=== PATIENT | female | born 1955 | race Caucasian/White ===

== ENCOUNTER → 2018-06-27 | Outpatient (CLI) | payer BC ==
--- NOTE | 2018-06-29 11:01 | MM ---
Reason for exam: screening (asymptomatic). Last mammogram was performed 3 years and 2 months ago. History: Patient is postmenopausal and is nulliparous. Physical Findings: A clinical breast exam by your physician is recommended on an annual basis and results should be correlated with mammographic findings. MG 3D Screening Mammo W/Cad Bilateral CC and MLO view(s) were taken. Prior study comparison: May 06, 2015, bilateral MG screening mammo w CAD. February 14, 2013, bilateral digital screening mammo w/CAD. There are scattered fibroglandular densities. There is chronic nodularity bilaterally. No significant changes when compared with prior studies. ASSESSMENT: Benign, BI-RAD 2 RECOMMENDATION: Routine screening mammogram of both breasts in 1 year.
== END ==
LOC: RADMAMWWP 16:10
PROVIDERS: ATTEND Family Medicine
DX: Z12.31 Encounter for screening mammogram for malignant neoplasm of breast (principal)
CPT/HCPCS: 77063; 77067

== ENCOUNTER → 2019-10-17 | Outpatient (CLI) | payer MEDICARE, BC ==
--- NOTE | 2019-10-19 10:44 | MM ---
Reason for exam: screening (asymptomatic). Last mammogram was performed 1 year and 4 months ago. History: Patient is postmenopausal and is nulliparous. Physical Findings: A clinical breast exam by your physician is recommended on an annual basis and results should be correlated with mammographic findings. MG Screening Mammo w CAD Bilateral CC and MLO view(s) were taken. Prior study comparison: June 27, 2018, bilateral MG 3d screening mammo w/cad. May 06, 2015, bilateral MG screening mammo w CAD. There are scattered fibroglandular densities. No significant changes when compared with prior studies. ASSESSMENT: Benign, BI-RAD 2 RECOMMENDATION: Routine screening mammogram of both breasts in 1 year.
== END | disposition home or self-care (01) ==
LOC: RADMAMWWP 14:09
PROVIDERS: ATTEND Family Medicine
DX: Z12.31 Encounter for screening mammogram for malignant neoplasm of breast (principal)
CPT/HCPCS: 77067

== ENCOUNTER 2020-10-04 16:43 | Inpatient (IN) | payer MEDICARE, BC ==
--- NOTE | 2020-10-04 17:55 | ED ---
Fall HPI - General Chief Complaint: Fall Stated Complaint: Low Blood Sugar Time Seen by Provider: 10/04/20 16:45 Source: EMS Mode of arrival: EMS - History of Present Illness Initial Comments: Patient is a 65 year old female with past medical history of diabetes and hypertension who presents to the emergency department with reported fall. She called EMS when she sustained a fall on her way back from the kitchen making herself food. She was having difficulty getting up. EMS found her weak and confused. They checked her sugars and was found to be 40 was given 1 amp of D50 and 500 of a normal saline bolus and she was much more alert. Patient arrives without complaint. Denies passing out. States she did not hit her head. Reports that her sugar was low because she had just need herself something to eat. She denies any chest pain or shortness of breath. No back or flank pain. No pain in her extremities. She does have a notable bruise to her right forehead. States she sustained this when she fell a couple weeks back. Normally ambulates with a walker. Patient does care for herself. States she is able to make foods. Friends check in on her and take her grocery shopping. 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 - Related Data Home Medications Medication Instructions Recorded Confirmed Ascorbic Acid [Vitamin C] 500 mg PO DAILY 10/04/20 10/04/20 Cholecalciferol [Vitamin D3 (25 2,000 unit PO DAILY 10/04/20 10/04/20 Mcg = 1000 Iu)] Enalapril [Vasotec] 20 mg PO BID 10/04/20 10/04/20 Insulin NPH Hum/Reg Insulin Hm 15 unit SQ HS 10/04/20 10/04/20 [NovoLIN 70-30 100 UNIT/ML VIAL] Insulin NPH Hum/Reg Insulin Hm 50 unit SQ DAILY 10/04/20 10/04/20 [NovoLIN 70-30 100 UNIT/ML VIAL] Multivitamins, Thera [Multivitamin 1 tab PO DAILY 10/04/20 10/04/20 (formulary)] Potassium Chloride [Klor-Con 20] 20 meq PO DAILY 10/04/20 10/04/20 Simvastatin 40 mg PO HS 10/04/20 10/04/20 hydrALAZINE HCL 25 mg PO TID 12/25/20 12/25/20 Previous Rx's Medication Instructions Recorded Cephalexin [Keflex] 500 mg PO BID 1 Days #14 cap 10/04/20 Allergies Allergy/AdvReac Type Severity Reaction Status Date / Time No Known Allergies Allergy Verified 10/04/20 19:12 Review of Systems ROS Statement: Those systems with pertinent positive or pertinent negative responses have been documented in the HPI. ROS Other: All systems not noted in ROS Statement are negative. Past Medical History Past Medical History: Diabetes Mellitus, Hypertension History of Any Multi-Drug Resistant Organisms: None Reported Additional Past Surgical History / Comment(s): left ankle surgery, tib/fib, ventral hernia, Smoking Status: Never smoker Past Alcohol Use History: None Reported Past Drug Use History: None Reported General Exam Limitations: no limitations Course Vital Signs 10/04/20 10/04/20 10/04/20 16:44 19:02 20:18 Temperature 91.1 F L 92.3 F L Pulse Rate 73 75 74 Respiratory 16 18 18 Rate Blood Pressure 128/73 140/78 136/78 O2 Sat by Pulse 95 96 95 Oximetry 10/04/20 20:41 Temperature Pulse Rate 74 Respiratory 18 Rate Blood Pressure 143/83 O2 Sat by Pulse 96 Oximetry Medical Decision Making - Medical Decision Making Upon arrival the patient is placed in room 5. A thorough history and physical exam was performed. Patient denies any pain at this time however she does have outward signs of head injury for which she states is old. I do request to perform a CT of her head and cervical spine for which the patient agrees to. Laboratory studies are also checked. Patient does get up and ambulate to the bathroom. CT of the head and cervical spine demonstrates no acute CT of the brain. No acute fractures in the neck. Laboratory studies are reviewed. Patient's glucose is 111. Urinalysis is positive for nitrates, 69 white blood cell and occasional white blood cell clumps. Patient was given a dose of Rocephin. I did discuss the diagnosis. I did recommend hospitalization as the patient had hypoglycemia with hypothermia. I am concerned about her living conditions. Patient is alert, of sound mind and requesting to go home at this time. Patient states that she is able to care for herself. She is able to get up and ambulate to the bathroom with a walker. She is instructed that she needs to have a friend come and check on her. Follow up with her primary care doctor in 2-4 days. Return to the emergency room for any new or worsening symptoms. Patient was in agreement with the plan and discharged home in stable condition Attempted discharge of the patient however the patient does not have a way of getting home. Because this I did call discuss case with Dr. Velásquez. We'll keep the patient for hypothermia, UTI and hypoglycemia. Dr. Velásquez did agree to the admission - Lab Data Result diagrams: 10/04/20 17:44 10/04/20 17:44 Lab Results 10/04/20 10/04/20 10/04/20 Range/Units 17:44 17:44 17:44 WBC 5.7 (3.8-10.6) k/uL RBC 3.94 (3.80-5.40) m/uL Hgb 12.2 (11.4-16.0) gm/dL Hct 36.4 (34.0-46.0) % MCV 92.4 (80.0-100.0) fL MCH 31.1 (25.0-35.0) pg MCHC 33.6 (31.0-37.0) g/dL RDW 14.0 (11.5-15.5) % Plt Count 171 (150-450) k/uL MPV 7.6 Neutrophils % 81 % Lymphocytes % 10 % Monocytes % 5 % Eosinophils % 1 % Basophils % 1 % Neutrophils # 4.6 (1.3-7.7) k/uL Lymphocytes # 0.6 L (1.0-4.8) k/uL Monocytes # 0.3 (0-1.0) k/uL Eosinophils # 0.1 (0-0.7) k/uL Basophils # 0.1 (0-0.2) k/uL PT 9.6 (9.0-12.0) sec INR 0.9 (<1.2) APTT 25.1 (22.0-30.0) sec Sodium (137-145) mmol/L Potassium (3.5-5.1) mmol/L Chloride (98-107) mmol/L Carbon Dioxide (22-30) mmol/L Anion Gap mmol/L BUN (7-17) mg/dL Creatinine (0.52-1.04) mg/dL Est GFR (CKD-EPI)AfAm (>60 ml/min/1.73 sqM) Est GFR (CKD-EPI)NonAf (>60 ml/min/1.73 sqM) Glucose (74-99) mg/dL Plasma Lactic Acid Mandeep (0.7-2.0) mmol/L Calcium (8.4-10.2) mg/dL Total Bilirubin (0.2-1.3) mg/dL AST (14-36) U/L ALT (4-34) U/L Alkaline Phosphatase (38-126) U/L Creatine Kinase (30-135) U/L Troponin I (0.000-0.034) ng/mL Total Protein (6.3-8.2) g/dL Albumin (3.5-5.0) g/dL Urine Color Yellow Urine Appearance Clear (Clear) Urine pH 5.5 (5.0-8.0) Ur Specific [place] 1.009 (1.001-1.035) Urine Protein 1+ H (Negative) Urine Glucose (UA) Negative (Negative) Urine Ketones Negative (Negative) Urine Blood Negative (Negative) Urine Nitrite Positive H (Negative) Urine Bilirubin Negative (Negative) Urine Urobilinogen <2.0 (<2.0) mg/dL Ur Leukocyte Esterase Large H (Negative) Urine RBC 4 (0-5) /hpf Urine WBC 69 H (0-5) /hpf Urine WBC Clumps Occasional H (None) /hpf Ur Squamous Epith Cells <1 (0-4) /hpf Urine Bacteria Few H (None) /hpf Urine Mucus Rare H (None) /hpf 10/04/20 10/04/20 10/04/20 Range/Units 17:44 17:44 17:44 WBC (3.8-10.6) k/uL RBC (3.80-5.40) m/uL Hgb (11.4-16.0) gm/dL Hct (34.0-46.0) % MCV (80.0-100.0) fL MCH (25.0-35.0) pg MCHC (31.0-37.0) g/dL RDW (11.5-15.5) % Plt Count (150-450) k/uL MPV Neutrophils % % Lymphocytes % % Monocytes % % Eosinophils % % Basophils % % Neutrophils # (1.3-7.7) k/uL Lymphocytes # (1.0-4.8) k/uL Monocytes # (0-1.0) k/uL Eosinophils # (0-0.7) k/uL Basophils # (0-0.2) k/uL PT (9.0-12.0) sec INR (<1.2) APTT (22.0-30.0) sec Sodium 137 (137-145) mmol/L Potassium 5.0 (3.5-5.1) mmol/L Chloride 112 H (98-107) mmol/L Carbon Dioxide 22 (22-30) mmol/L Anion Gap 3 mmol/L BUN 33 H (7-17) mg/dL Creatinine 0.83 (0.52-1.04) mg/dL Est GFR (CKD-EPI)AfAm 85 (>60 ml/min/1.73 sqM) Est GFR (CKD-EPI)NonAf 74 (>60 ml/min/1.73 sqM) Glucose 111 H (74-99) mg/dL Plasma Lactic Acid Mandeep 1.1 (0.7-2.0) mmol/L Calcium 10.8 H (8.4-10.2) mg/dL Total Bilirubin 0.3 (0.2-1.3) mg/dL AST 72 H (14-36) U/L ALT 92 H (4-34) U/L Alkaline Phosphatase 106 (38-126) U/L Creatine Kinase 46 (30-135) U/L Troponin I <0.012 (0.000-0.034) ng/mL Total Protein 6.1 L (6.3-8.2) g/dL Albumin 3.4 L (3.5-5.0) g/dL Urine Color Urine Appearance (Clear) Urine pH (5.0-8.0) Ur Specific [place] (1.001-1.035) Urine Protein (Negative) Urine Glucose (UA) (Negative) Urine Ketones (Negative) Urine Blood (Negative) Urine Nitrite (Negative) Urine Bilirubin (Negative) Urine Urobilinogen (<2.0) mg/dL Ur Leukocyte Esterase (Negative) Urine RBC (0-5) /hpf Urine WBC (0-5) /hpf Urine WBC Clumps (None) /hpf Ur Squamous Epith Cells (0-4) /hpf Urine Bacteria (None) /hpf Urine Mucus (None) /hpf - EKG Data EKG Comments: EKG demonstrates first-degree AV block. Rate of 69. MD interval 242. QRS 86. QTC of 439. No acute ST segment elevations or depressions concerning for ischemic changes or infarction Disposition Clinical Impression: Fall, UTI (urinary tract infection), Hypoglycemia Disposition: ADMITTED IP TO THIS HOSP Condition: Stable Instructions (If sedation given, give patient instructions): Urinary Tract Infection in Women (ED), Fall Prevention for Older Adults (ED) Additional Instructions: Please follow-up with your primary care doctor in 2-4 days. Return to the emergency room for any new or worsening symptoms Prescriptions: Cephalexin [Keflex] 500 mg PO BID 1 Days #14 cap Is patient prescribed a controlled substance at d/c from ED?: No Referrals: Luis Velásquez MD [Primary Care Provider] - 1-2 days Time of Disposition: 19:46 Decision to Admit Reason: Admit from EC Decision Date: 10/04/20 Decision Time: 20:49
[2020-10-04 18:02] LABS: Basophils # (A) 0.1 k/uL (0-0.2); Basophils % (A) 1 %; Eosinophils # (A) 0.1 k/uL (0-0.7); Eosinophils % (A) 1 %; HCT 36.4 % (34.0-46.0); HGB 12.2 gm/dL (11.4-16.0); Lymphocytes # (A) 0.6 k/uL (1.0-4.8); Lymphocytes % (A) 10 %; MCH 31.1 pg (25.0-35.0); MCHC 33.6 g/dL (31.0-37.0); MCV 92.4 fL (80.0-100.0); Mean Platelet Volume 7.6; Monocytes # (A) 0.3 k/uL (0-1.0); Monocytes % (A) 5 %; Neutrophils # (A) 4.6 k/uL (1.3-7.7); Neutrophils % (A) 81 %; Platelet Count 171 k/uL (150-450); RBC 3.94 m/uL (3.80-5.40); WBC 5.7 k/uL (3.8-10.6)
[2020-10-04 18:13] LABS: INR 0.9 (<1.2); Partial Thromboplastin Time 25.1 sec (22.0-30.0); Prothrombin Time 9.6 sec (9.0-12.0)
[2020-10-04 18:17] LABS: Albumin 3.4 g/dL (3.5-5.0); Calcium 10.8 mg/dL (8.4-10.2); Total Bilirubin 0.3 mg/dL (0.2-1.3); Total Protein 6.1 g/dL (6.3-8.2)
--- NOTE | 2020-10-04 18:23 | CT ---
EXAM: CT Head Without Intravenous Contrast CLINICAL HISTORY: ITS.REASON CT Reason: fall TECHNIQUE: Axial computed tomography images of the head/brain without intravenous contrast. CTDI is 45.2 mGy and DLP is 1008 mGy-cm. This CT exam was performed using one or more of the following dose reduction techniques: automated exposure control, adjustment of the mA and/or kV according to patient size, and/or use of iterative reconstruction technique. COMPARISON: None FINDINGS: Brain: No acute infarct or hemorrhage. No extra-axial fluid collection. No mass effect or midline shift. Ventricles and sulci: Cerebral volume loss. No ventriculomegaly or intraventricular hemorrhage. Bones: Normal. No bony lesion or acute fracture. Subcutaneous tissues: Normal. Sinuses: Mild mucosal thickening in the maxillary sinuses and ethmoid air cells. Small polyp versus mucous retention cyst in the right sphenoid sinus Mastoid air cells: Normal. Orbits: Grossly unremarkable. IMPRESSION: No acute intracranial abnormality. EXAM: CT Cervical Spine Without Intravenous Contrast CLINICAL HISTORY: ITS.REASON CT Reason: fall TECHNIQUE: Axial computed tomography images of the cervical spine without intravenous contrast. CTDI is 15.8 mGy and DLP is 421.1 mGy-cm. This CT exam was performed using one or more of the following dose reduction techniques: automated exposure control, adjustment of the mA and/or kV according to patient size, and/or use of iterative reconstruction technique. COMPARISON: None FINDINGS: Bones: Straightening of the normal cervical lordosis. Osteopenia. No acute fracture or bony lesion. Disc spaces: No subluxation. Degenerative changes of the spine. Soft tissues: Normal. Other: Paranasal sinus disease. Heterogeneous thyroid could be further evaluated with nonemergent dedicated ultrasound if clinically indicated.. IMPRESSION: No acute traumatic abnormality.
[2020-10-04 19:28] LABS: Appearance,Urine Clear (Clear); Bacteria,Urine Few /hpf; Bilirubin,Urine Negative (Negative); Blood,Urine Negative (Negative); Color,Urine Yellow; Glucose,Urine (UA) Negative (Negative); Ketones,Urine Negative (Negative); Leukocyte Esterase,Urine Large (Negative); Mucus,Urine Rare /hpf; Nitrite,Urine Positive (Negative); PH, Urine 5.5 (5.0-8.0); Protein,Urine 1+ (Negative); RBC,Urine 4 /hpf (0-5); Specific Gravity,Urine 1.009 (1.001-1.035); Squamous Epithelial Cell,Urine <1 /hpf (0-4); Urobilinogen,Urine <2.0 mg/dL (<2.0); WBC,Urine 69 /hpf (0-5)
[2020-10-04] MEDS ORDERED: cefTRIAXone IN SWFI 1,000 MG/10 ML SYRINGE IVP STA (19:43)
[2020-10-04] MEDS ORDERED: NALOXONE 0.4 MG/ML 1 ML VIAL IV PRN (20:49)
[2020-10-04] MEDS ORDERED: INSULN ASP PRT/INSULIN ASPART 100 UNIT/ML 10 ML VIAL SQ SCH (21:00)
[2020-10-04] MEDS ORDERED: ATORVASTATIN 20 MG TAB PO SCH (21:00)
[2020-10-04] MEDS ORDERED: SODIUM CHLORIDE 0.9% 1,000 ML IV ONE (21:12)
[2020-10-04] MEDS: lisinopriL 20 MG TAB PO SCH (21:19)
[2020-10-05] MEDS: hydrALAZINE HCL 25 MG TAB PO SCH ×2 (00:28→07:32)
[2020-10-05 06:34] LABS: Basophils % (A) 0 %; Eosinophils # (A) 0.1 k/uL (0-0.7); Eosinophils % (A) 2 %; HCT 38.6 % (34.0-46.0); HGB 12.6 gm/dL (11.4-16.0); Lymphocytes # (A) 0.7 k/uL (1.0-4.8); Lymphocytes % (A) 15 %; MCH 30.3 pg (25.0-35.0); MCHC 32.5 g/dL (31.0-37.0); MCV 93.2 fL (80.0-100.0); Monocytes # (A) 0.2 k/uL (0-1.0); Monocytes % (A) 6 %; Neutrophils # (A) 3.2 k/uL (1.3-7.7); Neutrophils % (A) 74 %; Platelet Count 181 k/uL (150-450); RBC 4.14 m/uL (3.80-5.40); WBC 4.3 k/uL (3.8-10.6)
[2020-10-05 06:37] LABS: African American GFR (CKD) >90 (>60 ml/min/1.73 sqM); Anion Gap 4 mmol/L; Blood Urea Nitrogen 30 mg/dL (7-17); Calcium 11.1 mg/dL (8.4-10.2); Carbon Dioxide 25 mmol/L (22-30); Chloride 111 mmol/L (98-107); Glucose 107 mg/dL (74-99); Non-African American GFR(CKD) 81 (>60 ml/min/1.73 sqM); Potassium 5.2 mmol/L (3.5-5.1); Sodium 140 mmol/L (137-145)
[2020-10-05] MEDS: lisinopriL 20 MG TAB PO SCH (07:33)
[2020-10-05] MEDS ORDERED: MULTIVITAMINS, THERA 1 EACH TAB PO SCH (09:00)
[2020-10-05] MEDS ORDERED: POTASSIUM CHLORIDE ER 20 MEQ TAB.ER PO SCH (09:00)
[2020-10-05] MEDS ORDERED: ASCORBIC ACID 500 MG TAB PO SCH (09:00)
[2020-10-05] MEDS ORDERED: CHOLECALCIFEROL 1,000 UNIT TAB PO SCH (09:00)
[2020-10-05] MEDS ORDERED: NON FORMULARY DRUG (Insulin Nph Hum/Reg Insulin Hm [Novolin 70-30 100 Unit/Ml Vial] 100 UN SQ SCH (09:00)
[2020-10-05 09:31] VITALS: BP 134/79; PULSE 92; RESP 18; TEMP 98.2
--- NOTE | 2020-10-05 16:18 | PN ---
PROGRESS NOTE DATE OF SERVICE: 10/04/2020 CHIEF COMPLAINT: Fall and hypoglycemia. HISTORY OF PRESENT ILLNESS: This is the first known admission for this 65-year-old white female with insulin- dependent diabetes mellitus who lives alone. Apparently she fell and could not get up. EMS was summoned and she was found to have a blood sugar of 40. She had no focal neurologic deficits, loss of consciousness, neurologic changes, change in vision or hearing, chest pain, syncope, incontinence, etc. REVIEW OF SYSTEMS: Otherwise unremarkable. Past medical history, family history and personal and social histories are unremarkable otherwise. She is allergic to PENICILLIN. Her blood sugars have been fairly tightly controlled. She stated that she was going to get a sandwich to eat when the event occurred. There was some question about her living conditions as reported by EMT personnel in the emergency room. She does not smoke or drink. PHYSICAL EXAMINATION: Blood pressure is 123/74, respirations of 30, and pulse is 65. She is afebrile. In general, she appeared to be well developed, well nourished, and overweight and in no acute distress. Skin color is normal. Skin is warm and dry. She did have dermatitis around a large umbilical hernia and she had some stasis dermatitis changes in the lower legs. Head, ears, eyes, nose, mouth, and throat were normal. Chest is clear. Cardiac exam is normal sinus rhythm and there are no murmurs or extra sounds. Abdomen is protuberant, soft and she had a large ventral hernia. Neurologically she is intact. She is admitted to the hospital diagnoses: 1. Hypoglycemic episode. 2. Insulin-dependent type 2 diabetes mellitus. 3. Bacteruria. PLAN: 1. Bed rest. 2. IV fluids. 3. C and S of the urine. 4. Decrease insulin management. MMODL / IJN: [id number] /
--- NOTE | 2020-10-05 17:51 | DS ---
DISCHARGE SUMMARY . CHIEF COMPLAINT: Hypoglycemic event. HISTORY OF PRESENT ILLNESS AND PHYSICAL EXAMINATION: Details of this lady's history and physical can be found in the initial workup. LABORATORY STUDIES: While she was in the hospital, she had laboratory studies, details of which can be found in the laboratory section of her chart. COURSE IN THE HOSPITAL: After admission, she was placed on bedrest, started on intravenous fluids and blood sugars were maintained. She was doing well and it was felt she could be discharged the following morning and she will go home on her usual activity, diet and medications and her insulin dosages will be cut. She will also be sent home on Bactrim DS for her urinary tract infection. She will be contacted in several days for followup. FINAL DIAGNOSES: 1. Hypoglycemic event with fall. 2. Insulin-dependent type 2 diabetes mellitus. 3. Urinary tract infection. OPERATIONS: None. CONSULTATIONS: None. She is improved. KIA / PHILIP: [id number] /
[2020-10-05] MEDS ORDERED: SULFAMETHOX-TMP 800-160MG 1 EACH TAB PO SCH (21:00)
[2020-10-06 09:29] LABS: Glucose,Whole Blood 103 mg/dL (75-99)
[2020-10-06 09:29] LABS: Glucose,Whole Blood 168 mg/dL (75-99)
[2020-10-06 09:34] LABS: Glucose,Whole Blood 188 mg/dL (75-99)
[2020-10-06 09:34] LABS: Glucose,Whole Blood 155 mg/dL (75-99)
[2020-10-10 05:38] LABS: Glucose,Whole Blood 147 mg/dL (75-99)
== END 2020-10-05 14:39 | disposition home or self-care (01) | DRG 638 ==
LOC: EC 16:43 → 4SSUR 20:50
PROVIDERS: ADMIT Family Medicine; ATTEND Family Medicine
DX: E11.649 Type 2 diabetes mellitus with hypoglycemia without coma (principal); N39.0 Urinary tract infection, site not specified; I10 Essential (primary) hypertension; K43.9 Ventral hernia without obstruction or gangrene; Z79.899 Other long term (current) drug therapy; Z79.4 Long term (current) use of insulin; S00.83XA Contusion of other part of head, initial encounter; W19.XXXA Unspecified fall, initial encounter
CPT/HCPCS: 36415; 70450; 72125; 80048; 80053; 81001; 82550; 83605; 84484; 85025; 85610; 85730; 87077; 87086; 87186; 93005; 96361; 96374; 99285

== ENCOUNTER 2021-02-27 11:38 | Inpatient (IN) | payer MEDICARE, BC ==
[2021-02-27 11:54] LABS: Glucose,Whole Blood 140 mg/dL (75-99)
[2021-02-27 12:50] LABS: Basophils % (A) 0 %; Eosinophils % (A) 1 %; HCT 40.2 % (34.0-46.0); HGB 12.7 gm/dL (11.4-16.0); Lymphocytes # (A) 0.6 k/uL (1.0-4.8); Lymphocytes % (A) 10 %; MCH 29.3 pg (25.0-35.0); MCHC 31.6 g/dL (31.0-37.0); MCV 92.5 fL (80.0-100.0); Mean Platelet Volume 7.6; Monocytes # (A) 0.4 k/uL (0-1.0); Monocytes % (A) 6 %; Neutrophils # (A) 4.7 k/uL (1.3-7.7); Neutrophils % (A) 81 %; Platelet Count 178 k/uL (150-450); RBC 4.35 m/uL (3.80-5.40); RDW 14.7 % (11.5-15.5); WBC 5.8 k/uL (3.8-10.6)
[2021-02-27 12:54] LABS: Appearance,Urine Clear (Clear); Bacteria,Urine Rare /hpf; Bilirubin,Urine Negative (Negative); Blood,Urine Negative (Negative); Color,Urine Yellow; Glucose,Urine (UA) Negative (Negative); Hyaline Casts,Urine 1 /lpf (0-2); Ketones,Urine 1+ (Negative); Leukocyte Esterase,Urine Negative (Negative); Mucus,Urine Few /hpf; Nitrite,Urine Negative (Negative); PH, Urine 6.5 (5.0-8.0); Protein,Urine 3+ (Negative); RBC,Urine 1 /hpf (0-5); Specific Gravity,Urine 1.016 (1.001-1.035); Squamous Epithelial Cell,Urine <1 /hpf (0-4); Urobilinogen,Urine <2.0 mg/dL (<2.0); WBC,Urine 4 /hpf (0-5)
[2021-02-27 12:56] LABS: Lactic Acid, Venous 0.7 mmol/L (0.7-2.0)
[2021-02-27 12:57] LABS: Albumin 3.4 g/dL (3.5-5.0); Calcium 10.9 mg/dL (8.4-10.2); Potassium 5.2 mmol/L (3.5-5.1); Total Bilirubin 0.2 mg/dL (0.2-1.3); Total Protein 6.1 g/dL (6.3-8.2)
--- NOTE | 2021-02-27 12:59 | CT ---
EXAMINATION TYPE: CT brain wo con DATE OF EXAM: 02/27/2021 COMPARISON: 10/04/2020 HISTORY: Altered mental status CT DLP: 1092.[address] of the brain was performed. The ventricles, basal cisterns and sulci overlying the cerebral convexities demonstrate mild enlargem ent. There is no evidence for intracranial hemorrhage or sulcal effacement. There is decreased attenuation about the periventricular white matter and deep white matter of both c erebral hemispheres, compatible with chronic small vessel ischemia. Differential diagnosis does inclu de demyelination. No mass effects are seen.No midline shift. Osseous calvarium is intact. Posterior parietal midline scalp hematoma. If symptoms persist consider MRI. IMPRESSION: 1. Age related atrophic and chronic small vessel ischemic change without acute intracranial process s een at this time.
[2021-02-27 13:00] LABS: INR 0.9 (<1.2); Partial Thromboplastin Time 24.9 sec (22.0-30.0); Prothrombin Time 9.6 sec (9.0-12.0)
[2021-02-27 13:02] LABS: Amphetamine Screen,Urine Not Detected (NotDetected); Barbiturate Screen,Urine Not Detected (NotDetected); Benzodiazepines Screen,Urine Not Detected (NotDetected); Cocaine Screen,Urine Not Detected (NotDetected); Methadone Screen, Urine Not Detected (NotDetected); Opiate Screen,Urine Not Detected (NotDetected); Oxycodone Screen, Urine Not Detected (NotDetected); Phencyclidine Screen,Urine Not Detected (NotDetected); Tricyclic Antidepressant,Urine Not Detected (NotDetected); Urn Cannabinoid Scrn Not Detected (NotDetected)
--- NOTE | 2021-02-27 13:05 | ED ---
Altered Mental Status HPI - General Source: patient, EMS, RN notes reviewed Mode of arrival: EMS Limitations: altered mental status <Reynaldo Khan - Last Filed: 02/27/21 14:03> <Christiano Aragon - Last Filed: 02/27/21 14:11> - General Chief Complaint: Altered Mental Status Stated Complaint: hypoglycemia Time Seen by Provider: 02/27/21 12:15 - History of Present Illness Initial Comments: This is a 65-year-old female presents emergency department via EMS with chief complaint of altered mental status. Patient was found by [facility] when she did not answer her door. Patient found to be hypoglycemic given dextrose but no improvement of mentation. Patient has had recent hospitalization for seizures UTI hyperglycemia patient cannot provide much information she is very dishes there was no noted focal deficits denies chest pain shortness breath no reported fever. (Reynaldo Khan) - Related Data Home Medications Medication Instructions Recorded Confirmed Ascorbic Acid [Vitamin C] 500 mg PO DAILY 10/04/20 10/04/20 Cholecalciferol [Vitamin D3 (25 2,000 unit PO DAILY 10/04/20 10/04/20 Mcg = 1000 Iu)] Enalapril [Vasotec] 20 mg PO BID 10/04/20 10/04/20 Multivitamins, Thera [Multivitamin 1 tab PO DAILY 10/04/20 10/04/20 (formulary)] Potassium Chloride [Klor-Con 20] 20 meq PO DAILY 10/04/20 10/04/20 Simvastatin 40 mg PO HS 10/04/20 10/04/20 hydrALAZINE HCL 25 mg PO TID 10/04/20 10/04/20 Previous Rx's Medication Instructions Recorded Cephalexin [Keflex] 500 mg PO BID 1 Days #14 cap 10/04/20 Insulin NPH Hum/Reg Insulin Hm 10 unit SQ HS #1 vial 10/05/20 [NovoLIN 70-30 100 UNIT/ML VIAL] Insulin NPH Hum/Reg Insulin Hm 40 unit SQ DAILY #1 vial 10/05/20 [NovoLIN 70-30 100 UNIT/ML VIAL] Sulfamethox-Tmp 800-160Mg [Bactrim 1 each PO BID #20 tab 10/05/20 DS 800-160 mg] Allergies Allergy/AdvReac Type Severity Reaction Status Date / Time No Known Allergies Allergy Verified 10/04/20 19:12 Review of Systems ROS Other: All systems not noted in ROS Statement are negative. <Reynaldo Khan - Last Filed: 02/27/21 14:03> ROS Other: All systems not noted in ROS Statement are negative. <Christiano Aragon - Last Filed: 02/27/21 14:11> ROS Statement: Those systems with pertinent positive or pertinent negative responses have been documented in the HPI. Past Medical History Past Medical History: Diabetes Mellitus, Hypertension History of Any Multi-Drug Resistant Organisms: None Reported Additional Past Surgical History / Comment(s): left ankle surgery, tib/fib, ventral hernia, Past Anesthesia/Blood Transfusion Reactions: No Reported Reaction Past Psychological History: No Psychological Hx Reported Smoking Status: Never smoker Past Alcohol Use History: None Reported Past Drug Use History: None Reported <Reynaldo Khan - Last Filed: 02/27/21 14:03> General Exam Limitations: altered mental status General appearance: alert, in no apparent distress Head exam: Present: atraumatic, normocephalic, normal inspection Eye exam: Present: normal appearance, PERRL, EOMI. Absent: scleral icterus, conjunctival injection, periorbital swelling ENT exam: Present: normal exam, normal oropharynx, mucous membranes moist Neck exam: Present: normal inspection, full ROM. Absent: tenderness, meningismus, lymphadenopathy Respiratory exam: Present: normal lung sounds bilaterally. Absent: respiratory distress, wheezes, rales, rhonchi, stridor Cardiovascular Exam: Present: normal rhythm, tachycardia, normal heart sounds. Absent: systolic murmur, diastolic murmur, rubs, gallop, clicks GI/Abdominal exam: Present: soft, normal bowel sounds. Absent: distended, tenderness, guarding, rebound, rigid Neurological exam: Present: alert. Absent: oriented X3 <Reynaldo Khan - Last Filed: 02/27/21 14:03> Course <Christiano Aragon - Last Filed: 02/27/21 14:11> Vital Signs 02/27/21 02/27/21 12:04 13:04 Temperature 97.6 F Pulse Rate 109 H 92 Respiratory 18 16 Rate Blood Pressure 174/104 158/87 O2 Sat by Pulse 98 96 Oximetry - Reevaluation(s) Reevaluation #1: 02/27/21 14:11 PA supervision: I personally evaluate this case the patient who did present with complaints of some altered mental status and weakness she was found on evaluation be dehydrated have evidence of a elevated troponin. Patient will be admitted case had been discussed with Dr. Salguero. I do agree with the assessment and plan (Christiano Aragon) Medical Decision Making - Lab Data Result diagrams: 02/27/21 12:31 02/27/21 12:31 - EKG Data -: EKG Interpreted by Me <Reynaldo Khan - Last Filed: 02/27/21 14:03> - Lab Data Result diagrams: 02/27/21 12:31 02/27/21 12:31 <Christiano Aragon - Last Filed: 02/27/21 14:11> - Medical Decision Making Patient presented for altered mental status. Sugar was initially low improved at this time but still altered. Patient has mildly elevated troponin no current chest pain. No EKG changes. Patient be admitted for altered mental status further evaluation. (Reynaldo Khan) - Lab Data Lab Results 02/27/21 02/27/21 02/27/21 Range/Units 11:52 12:31 12:31 WBC 5.8 (3.8-10.6) k/uL RBC 4.35 (3.80-5.40) m/uL Hgb 12.7 (11.4-16.0) gm/dL Hct 40.2 (34.0-46.0) % MCV 92.5 (80.0-100.0) fL MCH 29.3 (25.0-35.0) pg MCHC 31.6 (31.0-37.0) g/dL RDW 14.7 (11.5-15.5) % Plt Count 178 (150-450) k/uL MPV 7.6 Neutrophils % 81 % Lymphocytes % 10 % Monocytes % 6 % Eosinophils % 1 % Basophils % 0 % Neutrophils # 4.7 (1.3-7.7) k/uL Lymphocytes # 0.6 L (1.0-4.8) k/uL Monocytes # 0.4 (0-1.0) k/uL Eosinophils # 0.0 (0-0.7) k/uL Basophils # 0.0 (0-0.2) k/uL PT 9.6 (9.0-12.0) sec INR 0.9 (<1.2) APTT 24.9 (22.0-30.0) sec Sodium (137-145) mmol/L Potassium (3.5-5.1) mmol/L Chloride (98-107) mmol/L Carbon Dioxide (22-30) mmol/L Anion Gap mmol/L BUN (7-17) mg/dL Creatinine (0.52-1.04) mg/dL Est GFR (CKD-EPI)AfAm (>60 ml/min/1.73 sqM) Est GFR (CKD-EPI)NonAf (>60 ml/min/1.73 sqM) Glucose (74-99) mg/dL POC Glucose (mg/dL) 140 H (75-99) mg/dL POC Glu [employer] Supervisor ID Tisha Yu Plasma Lactic Acid Mandeep (0.7-2.0) mmol/L Calcium (8.4-10.2) mg/dL Total Bilirubin (0.2-1.3) mg/dL AST (14-36) U/L ALT (4-34) U/L Alkaline Phosphatase (38-126) U/L Ammonia (<30) umol/L Troponin I (0.000-0.034) ng/mL Total Protein (6.3-8.2) g/dL Albumin (3.5-5.0) g/dL Urine Color Urine Appearance (Clear) Urine pH (5.0-8.0) Ur Specific [address] (1.001-1.035) Urine Protein (Negative) Urine Glucose (UA) (Negative) Urine Ketones (Negative) Urine Blood (Negative) Urine Nitrite (Negative) Urine Bilirubin (Negative) Urine Urobilinogen (<2.0) mg/dL Ur Leukocyte Esterase (Negative) Urine RBC (0-5) /hpf Urine WBC (0-5) /hpf Ur Squamous Epith Cells (0-4) /hpf Urine Bacteria (None) /hpf Hyaline Casts (0-2) /lpf Urine Mucus (None) /hpf Urine Opiates Screen (NotDetected) Ur Oxycodone Screen (NotDetected) Urine Methadone Screen (NotDetected) Ur Propoxyphene Screen (NotDetected) Ur Barbiturates Screen (NotDetected) U Tricyclic Antidepress (NotDetected) Ur Phencyclidine Scrn (NotDetected) Ur Amphetamines Screen (NotDetected) U Methamphetamines Scrn (NotDetected) U Benzodiazepines Scrn (NotDetected) Urine Cocaine Screen (NotDetected) U Marijuana (THC) Screen (NotDetected) 02/27/21 02/27/21 02/27/21 Range/Units 12:31 12:31 12:31 WBC (3.8-10.6) k/uL RBC (3.80-5.40) m/uL Hgb (11.4-16.0) gm/dL Hct (34.0-46.0) % MCV (80.0-100.0) fL MCH (25.0-35.0) pg MCHC (31.0-37.0) g/dL RDW (11.5-15.5) % Plt Count (150-450) k/uL MPV Neutrophils % % Lymphocytes % % Monocytes % % Eosinophils % % Basophils % % Neutrophils # (1.3-7.7) k/uL Lymphocytes # (1.0-4.8) k/uL Monocytes # (0-1.0) k/uL Eosinophils # (0-0.7) k/uL Basophils # (0-0.2) k/uL PT (9.0-12.0) sec INR (<1.2) APTT (22.0-30.0) sec Sodium 140 (137-145) mmol/L Potassium 5.2 H (3.5-5.1) mmol/L Chloride 111 H (98-107) mmol/L Carbon Dioxide 22 (22-30) mmol/L Anion Gap 7 mmol/L BUN 34 H (7-17) mg/dL Creatinine 1.01 (0.52-1.04) mg/dL Est GFR (CKD-EPI)AfAm 67 (>60 ml/min/1.73 sqM) Est GFR (CKD-EPI)NonAf 58 (>60 ml/min/1.73 sqM) Glucose 153 H (74-99) mg/dL POC Glucose (mg/dL) (75-99) mg/dL POC Glu [employer] Supervisor ID Plasma Lactic Acid Mandeep 0.7 (0.7-2.0) mmol/L Calcium 10.9 H (8.4-10.2) mg/dL Total Bilirubin 0.2 (0.2-1.3) mg/dL AST 49 H (14-36) U/L ALT 50 H (4-34) U/L Alkaline Phosphatase 132 H (38-126) U/L Ammonia <9 (<30) umol/L Troponin I (0.000-0.034) ng/mL Total Protein 6.1 L (6.3-8.2) g/dL Albumin 3.4 L (3.5-5.0) g/dL Urine Color Yellow Urine Appearance Clear (Clear) Urine pH 6.5 (5.0-8.0) Ur Specific [address] 1.016 (1.001-1.035) Urine Protein 3+ H (Negative) Urine Glucose (UA) Negative (Negative) Urine Ketones 1+ H (Negative) Urine Blood Negative (Negative) Urine Nitrite Negative (Negative) Urine Bilirubin Negative (Negative) Urine Urobilinogen <2.0 (<2.0) mg/dL Ur Leukocyte Esterase Negative (Negative) Urine RBC 1 (0-5) /hpf Urine WBC 4 (0-5) /hpf Ur Squamous Epith Cells <1 (0-4) /hpf Urine Bacteria Rare H (None) /hpf Hyaline Casts 1 (0-2) /lpf Urine Mucus Few H (None) /hpf Urine Opiates Screen Not Detected (NotDetected) Ur Oxycodone Screen Not Detected (NotDetected) Urine Methadone Screen Not Detected (NotDetected) Ur Propoxyphene Screen Not Detected (NotDetected) Ur Barbiturates Screen Not Detected (NotDetected) U Tricyclic Antidepress Not Detected (NotDetected) Ur Phencyclidine Scrn Not Detected (NotDetected) Ur Amphetamines Screen Not Detected (NotDetected) U Methamphetamines Scrn Not Detected (NotDetected) U Benzodiazepines Scrn Not Detected (NotDetected) Urine Cocaine Screen Not Detected (NotDetected) U Marijuana (THC) Screen Not Detected (NotDetected) 02/27/21 Range/Units 12:31 WBC (3.8-10.6) k/uL RBC (3.80-5.40) m/uL Hgb (11.4-16.0) gm/dL Hct (34.0-46.0) % MCV (80.0-100.0) fL MCH (25.0-35.0) pg MCHC (31.0-37.0) g/dL RDW (11.5-15.5) % Plt Count (150-450) k/uL MPV Neutrophils % % Lymphocytes % % Monocytes % % Eosinophils % % Basophils % % Neutrophils # (1.3-7.7) k/uL Lymphocytes # (1.0-4.8) k/uL Monocytes # (0-1.0) k/uL Eosinophils # (0-0.7) k/uL Basophils # (0-0.2) k/uL PT (9.0-12.0) sec INR (<1.2) APTT (22.0-30.0) sec Sodium (137-145) mmol/L Potassium (3.5-5.1) mmol/L Chloride (98-107) mmol/L Carbon Dioxide (22-30) mmol/L Anion Gap mmol/L BUN (7-17) mg/dL Creatinine (0.52-1.04) mg/dL Est GFR (CKD-EPI)AfAm (>60 ml/min/1.73 sqM) Est GFR (CKD-EPI)NonAf (>60 ml/min/1.73 sqM) Glucose (74-99) mg/dL POC Glucose (mg/dL) (75-99) mg/dL POC Glu [employer] Supervisor ID Plasma Lactic Acid Mandeep (0.7-2.0) mmol/L Calcium (8.4-10.2) mg/dL Total Bilirubin (0.2-1.3) mg/dL AST (14-36) U/L ALT (4-34) U/L Alkaline Phosphatase (38-126) U/L Ammonia (<30) umol/L Troponin I 0.051 H* (0.000-0.034) ng/mL Total Protein (6.3-8.2) g/dL Albumin (3.5-5.0) g/dL Urine Color Urine Appearance (Clear) Urine pH (5.0-8.0) Ur Specific [address] (1.001-1.035) Urine Protein (Negative) Urine Glucose (UA) (Negative) Urine Ketones (Negative) Urine Blood (Negative) Urine Nitrite (Negative) Urine Bilirubin (Negative) Urine Urobilinogen (<2.0) mg/dL Ur Leukocyte Esterase (Negative) Urine RBC (0-5) /hpf Urine WBC (0-5) /hpf Ur Squamous Epith Cells (0-4) /hpf Urine Bacteria (None) /hpf Hyaline Casts (0-2) /lpf Urine Mucus (None) /hpf Urine Opiates Screen (NotDetected) Ur Oxycodone Screen (NotDetected) Urine Methadone Screen (NotDetected) Ur Propoxyphene Screen (NotDetected) Ur Barbiturates Screen (NotDetected) U Tricyclic Antidepress (NotDetected) Ur Phencyclidine Scrn (NotDetected) Ur Amphetamines Screen (NotDetected) U Methamphetamines Scrn (NotDetected) U Benzodiazepines Scrn (NotDetected) Urine Cocaine Screen (NotDetected) U Marijuana (THC) Screen (NotDetected) - EKG Data EKG Comments: EKG performed at 13:00 normal sinus rhythm rate of 94 WI 196 QRS 78 QT/QTC 324/405 (Reynaldo Khan) Disposition <Reynaldo Khan - Last Filed: 02/27/21 14:03> <Christiano Aragon - Last Filed: 02/27/21 14:11> Clinical Impression: Hypoglycemia, Altered mental status Disposition: ADMITTED IP TO THIS HOSP Condition: Fair Referrals: Luis Velásquez MD [Primary Care Provider] - 1-2 days
--- NOTE | 2021-02-27 13:52 | XR ---
EXAMINATION TYPE: XR chest 1V portable DATE OF EXAM: 02/27/2021 COMPARISON: NONE HISTORY: Altered mental status TECHNIQUE: Single frontal view of the chest is obtained. FINDINGS: Multiple overlying leads. Heart size is within normal limits. There are patchy perihilar a nd interstitial airspace opacities suggestive of edema or atypical infection. Probable small right pl eural effusion. No left pleural effusion. No pneumothorax. IMPRESSION: 1. Patchy perihilar and interstitial airspace opacities may represent edema or infection. Small right pleural effusion.
[2021-02-27] MEDS ORDERED: NALOXONE 0.4 MG/ML 1 ML VIAL IV PRN ×2 (14:05→14:14)
[2021-02-27] MEDS ORDERED: ONDANSETRON 4 MG/2 ML VIAL IVP PRN (14:10)
[2021-02-27 16:42] LABS: Glucose,Whole Blood 102 mg/dL (75-99)
[2021-02-27] MEDS ORDERED: IPRATROPIUM-ALBUTEROL 3 ML NEB INHALATION PRN (19:43)
[2021-02-27 19:59] LABS: Glucose,Whole Blood 104 mg/dL (75-99)
[2021-02-27] MEDS: IPRATROPIUM-ALBUTEROL 3 ML NEB INHALATION SCH (20:39)
--- NOTE | 2021-02-27 21:02 | US ---
EXAMINATION TYPE: US carotid duplex BILAT DATE OF EXAM: 02/27/2021 COMPARISON: NONE CLINICAL HISTORY: stoke. altered mental status EXAM MEASUREMENTS: RIGHT: Peak Systolic Velocity (PSV) cm/sec ----- Right CCA: 92.2 ----- Right ICA: 75.3 ----- Right ECA: 111.7 ICA/CCA ratio: 0.8 RIGHT: End Diastole cm/sec ----- Right CCA: 20.6 ----- Right ICA: 24.7 ----- Right ECA: 10.7 LEFT: Peak Systolic Velocity (PSV) cm/sec ----- Left CCA: 76.2 ----- Left ICA: 80.0 ----- Left ECA: 102.9 ICA/CCA ratio: 1.0 LEFT: End Diastole cm/sec ----- Left CCA: 18.6 ----- Left ICA: 25.0 ----- Left ECA: 21.6 VERTEBRALS (direction of flow): Right Vertebral: Antegrade Left Vertebral: Antegrade Rhythm: Normal IMPRESSION: Mild heterogeneous plaque with no significant stenosis seen. Criteria for Assigning % of Stenosis / Diameter reduction (Estimation based on the indirect measurements of the internal carotid artery velocities (ICA PSV). 1. Normal (no stenosis)=ICA PSV < 125 cm/s: ratio < 2.0: ICA EDV<40 cm/s. 2. Less than 50% stenosis=ICA PSV < 125 cm/s: ratio < 2.0: ICA EDV<40 cm/s. 3. 50 to 69% stenosis=ICA PSV of 125 to 230 cm/s: ration 2.0 ? 4.0: ICA EDV 40-100 cm/s. 4. Greater than 70% stenosis to near occlusion= ICA PSV > 230 cm/s: ratio > 4.0: ICA EDV > 100 cm/s. 5. Near occlusion= ICA PSV velocities may be low or undetectable: variable ratio and ICA EDV. 6. Total occlusion=unable to detect flow.
[2021-02-27] MEDS: DEXTROSE 5%-0.45% NACL 1,000 ML IV SCH (21:16)
--- NOTE | 2021-02-27 23:59 | P.CNNES ---
History of Present Illness Consult date: 02/27/21 Requesting physician: Reynaldo Khan Reason for Consult: Altered mental status History of Present Illness: Patient is a 65-year-old female came to the hospital today at 11:38 AM by ambulance. Patient not able to provide any history. As per EMS flow sheet, it was reported that patient lives in assisted living with [facility]. Staff was stating that patient is altered and not responding appropriately. Patient w as alert and oriented 1 and she was noted to be tachypneic. Unknown last known well. Patient's blood sugar was 63. D50 was administered patient shortly after became more oriented and became oriented 2. Repeat blood sugar was 270. Patient's blood pressure was 161/85, pulse rate 105, respiration 24. Vital signs on arrival blood pressure 174/104, pulse rate 109 and temperature 97.6. Patient underwent computed tomography scan of the head, which revealed age- related atrophic and chronic small vessel ischemic changes without acute intracranial process seen at this time. Chest x-ray revealed patchy perihilar and interstitial airspace opacities may represent edema or infection. EKG shows normal sinus rhythm. Carotid Doppler has been performed, which revealed mild heterogeneous plaque with no significant stenosis. Blood test shows normal CBC, PT/PTT. Sodium is normal potassium 5.2, BUN 34 creatinine 1.01. Calcium 10.9 AST is 49, ALT 50. Ammonia is normal. Troponins are mildly elevated. UA is negative. Urine drug screen negative. Islas virus negative. Patient at present is very confused, states she is 52 years of age. Please refer to examination below. She perseverates. Patient states that she lives alone has no children. She denies headache, denies any pain. She does not know who brought her to the hospital. Review of Systems Patient admitted to having no headache, no pain. ROS unobtainable: due to mental status Past Medical History Past Medical History: Diabetes Mellitus, Hypertension History of Any Multi-Drug Resistant Organisms: None Reported Additional Past Surgical History / Comment(s): left ankle surgery, tib/fib, ventral hernia, Past Anesthesia/Blood Transfusion Reactions: No Reported Reaction Past Psychological History: No Psychological Hx Reported Smoking Status: Never smoker Past Alcohol Use History: None Reported Past Drug Use History: None Reported Medications and Allergies Home Medications Medication Instructions Recorded Confirmed Type Ascorbic Acid [Vitamin C] 500 mg PO DAILY 10/04/20 02/27/21 History Cholecalciferol [Vitamin D3 (25 2,000 unit PO DAILY 10/04/20 02/27/21 History Mcg = 1000 Iu)] Enalapril [Vasotec] 20 mg PO BID 10/04/20 02/27/21 History Multivitamins, Thera [Multivitamin 1 tab PO DAILY 10/04/20 02/27/21 History (formulary)] Potassium Chloride [Klor-Con 20] 20 meq PO DAILY 10/04/20 02/27/21 History Simvastatin 40 mg PO HS 10/04/20 02/27/21 History hydrALAZINE HCL 25 mg PO TID 10/04/20 02/27/21 History Insulin NPH Hum/Reg Insulin Hm 20 unit SQ HS 02/27/21 02/27/21 History [NovoLIN 70-30 100 UNIT/ML VIAL] Insulin NPH Hum/Reg Insulin Hm 65 unit SQ QAM 02/27/21 02/27/21 History [NovoLIN 70-30 100 UNIT/ML VIAL] Allergies Allergy/AdvReac Type Severity Reaction Status Date / Time No Known Allergies Allergy Verified 10/04/20 19:12 Physical Examination - Vital Signs Vital Signs: Vital Signs Temp Pulse Pulse Resp BP BP Pulse Ox 02/27/21 20:48 88 02/27/21 20:39 88 02/27/21 20:00 97.5 F L 89 16 167/83 95 02/27/21 16:30 97.4 F L 98 20 159/93 97 02/27/21 16:08 97.5 F L 92 18 156/85 97 02/27/21 15:24 90 18 161/94 96 02/27/21 13:04 92 16 158/87 96 02/27/21 12:04 97.6 F 109 H 18 174/104 98 Intake and Output 02/27/21 02/27/21 02/28/21 14:59 22:59 06:59 Intake Total 0 Output Total 350 600 Balance -350 -600 Intake: Oral 0 Output: Urine 350 600 Straight 350 600 Other: Voiding Method Diaper Incontinent Weight 90.718 kg 90.718 kg Patient is an elderly female, who is laying in the bed, appears very confused. Patient is slightly somnolent, but does open her eyes to calling her name. She states she is 52 years of age. She knows her name. Patient perseverates. She states that she is in [facility]. When I asked the month, states [place]. When I asked the year, states [place]. President is ingrid Milligan. Patient was able to name objects like a pen and glasses. For the thumb, she states finger. Attention, concentration and fund of knowledge is limited. She can repeat only short sentences. On cranial examination, pupils are round and reacting to light, visual moore are full on confrontation, but was very inconsistent for right left. Her extraocular muscles are intact with no nystagmus. Face is symmetric, tongue protrudes to the midline. Palatal elevation and sensation could not be tested. Hearing is decreased could not check shoulder shrug. Her facial sensation normal. Patient has dried secretions/saliva noted around her mouth. 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 Hip flexion patient was able to lift her legs only about 10-15 above the bed. She was giving some resistance therefore 3+. Ankle dorsiflexion she did not cooperate. Knee extension appears normal. Plantar flexion appears normal. Deep tendon reflexes are 2 in both biceps and brachioradialis. 2 in the bilateral knees. 1 at the bilateral ankles and plantars are upgoing bilaterally. Sensory to touch is equal with no neglect, although had significant inconsistent responses. Cerebellar function showed no obvious ataxia for [id number] testing. Tone is moderately increased on the right, mildly on the left. Gait not checked. On general examination, there is no carotid bruit or murmur, S1-S2 audible. Abdomen is soft nontender. Chest is clear. Peripheral pulses are present. Mild peripheral edema. Results - Laboratory Findings CBC and BMP: 02/27/21 12:31 02/27/21 12:31 Abnormal Lab Findings: Abnormal Labs 02/27/21 02/27/21 02/27/21 11:52 12:31 12:31 Lymphocytes # 0.6 L D-Dimer Potassium Chloride BUN Glucose POC Glucose (mg/dL) 140 H Plasma Lactic Acid Mandeep Calcium AST ALT Alkaline Phosphatase Troponin I Total Protein Albumin Urine Protein 3+ H Urine Ketones 1+ H Urine Bacteria Rare H Urine Mucus Few H 02/27/21 02/27/21 02/27/21 12:31 12:31 15:41 Lymphocytes # D-Dimer Potassium 5.2 H Chloride 111 H BUN 34 H Glucose 153 H POC Glucose (mg/dL) Plasma Lactic Acid Mandeep Calcium 10.9 H AST 49 H ALT 50 H Alkaline Phosphatase 132 H Troponin I 0.051 H* 0.046 H* Total Protein 6.1 L Albumin 3.4 L Urine Protein Urine Ketones Urine Bacteria Urine Mucus 02/27/21 02/27/21 02/27/21 16:40 18:21 19:57 Lymphocytes # D-Dimer Potassium Chloride BUN Glucose POC Glucose (mg/dL) 102 H 104 H Plasma Lactic Acid Mandeep Calcium AST ALT Alkaline Phosphatase Troponin I 0.046 H* Total Protein Albumin Urine Protein Urine Ketones Urine Bacteria Urine Mucus 02/27/21 02/27/21 02/27/21 20:10 20:10 20:10 Lymphocytes # D-Dimer 0.98 H Potassium Chloride BUN Glucose POC Glucose (mg/dL) Plasma Lactic Acid Mandeep 0.6 L Calcium AST ALT Alkaline Phosphatase Troponin I 0.050 H* Total Protein Albumin Urine Protein Urine Ketones Urine Bacteria Urine Mucus Assessment and Plan Assessment: * Altered mental status, possible due to toxic metabolic encephalopathy. Rule out CVA. * Diabetes * Hypertension * Hyperlipidemia Plan: * Patient will undergo MRI of the brain to evaluate for an acute stroke. * EEG to rule out any epileptiform activity. * Carotid Doppler revealed mild heterogeneous plaque with no significant stenosis. Antegrade flow in both vertebral arteries. * Agree with the 2-D echo. * Fasting lipid panel, hemoglobin A1c, B12, folate, TSH. * Start aspirin 325 mg daily. If cannot take by mouth, would recommend rectal aspirin. * We will follow. Time with Patient: Greater than 30
[2021-02-28] MEDS: ASPIRIN 81 MG PO STA ×2 (00:51→01:01)
[2021-02-28] MEDS ORDERED: ASPIRIN 300 MG SUPP RECTAL STA (00:59)
[2021-02-28 04:33] LABS: Hemoglobin A1C 5.3 % (4.0-6.0)
[2021-02-28] MEDS ORDERED: IOPAMIDOL CONTRAST (ORAL USE) VIAL PO PRN (06:00)
[2021-02-28 06:10] LABS: Glucose,Whole Blood 180 mg/dL (75-99)
[2021-02-28] MEDS: DEXTROSE 5%-0.45% NACL 1,000 ML IV SCH ×2 (06:21→17:58)
[2021-02-28] MEDS: IPRATROPIUM-ALBUTEROL 3 ML NEB INHALATION SCH ×4 (07:53→19:50)
--- NOTE | 2021-02-28 09:47 | ECHOF ---
Referral Reason:stroke MEASUREMENTS -------- HEIGHT: 162.6 cm WEIGHT: 98.0 kg BP: 162/77 RVIDd: 2.6 cm (< 3.3) IVSd: 1.3 cm (0.6 - 1.1) LVIDd: 4.9 cm (3.9 - 5.3) LVPWd: 1.2 cm (0.6 - 1.1) IVSs: 1.4 cm LVIDs: 3.8 cm LVPWs: 1.7 cm LA Diam: 3.6 cm (2.7 - 3.8) LAESV Index (A-L): 25.72 ml/m Ao Diam: 3.0 cm (2.0 - 3.7) AV Cusp: 2.1 cm (1.5 - 2.6) MV EXCURSION: 17.896 mm (> 18.000) MV EF SLOPE: 138 mm/s (70 - 150) EPSS: 0.4 cm MV E Valeriy: 1.15 m/s MV DecT: 134 ms MV A Valeriy: 1.26 m/s MV E/A Ratio: 0.92 RAP: 5.00 mmHg RVSP: 23.73 mmHg FINDINGS -------- Sinus rhythm. This was a technically good study. The left ventricular size is normal. There is mild concentric left ventricular hypertrophy. Overa ll left ventricular systolic function is normal with, an EF between 60 - 65 %. The right ventricle is normal in size. Normal LA size by volume 22+/-6 ml/m2. The right atrium is normal in size. Aneurysmal Interatrial septum. The aortic valve is trileaflet and appears structurally normal. Mild mitral regurgitation is present. Mild tricuspid regurgitation present. Right ventricular systolic pressure is normal at < 35 mmHg. Trace/mild (physiologic) pulmonic regurgitation. The aortic root size is normal. Normal inferior vena cava with normal inspiratory collapse consistent with estimated right atrial pre ssure of 5 mmHg. There is no pericardial effusion. CONCLUSIONS -------- 1. The left ventricular size is normal. 2. There is mild concentric left ventricular hypertrophy. 3. Overall left ventricular systolic function is normal with, an EF between 60 - 65 %. 4. Aneurysmal Interatrial septum. 5. Mild mitral regurgitation is present. 6. Mild tricuspid regurgitation present. 7. Trace/mild (physiologic) pulmonic regurgitation. 8. There is no pericardial effusion. SLUBBER HAND: Genevieve Polk RDCS
--- NOTE | 2021-02-28 10:11 | P.CRDCN ---
History of Present Illness Consult date: 02/28/21 History of present illness: HISTORY OF PRESENT ILLNESS: This is a 65-year-old female with a past medical history significant for hypertension and diabetes mellitus. Patient does not follow with a red cap. We have been asked to see the patient in consultation for elevated troponins. According to the ER physician note, the patient was brought to the hospital after she did not answer the door for [employer] and altered mental status. Patient examined at the bedside. Patient is a poor historian. Patient unable to tell me why she is at the hospital or what events led up to her coming in. Patient denies chest pain or pressure. She denies shortness of breath. Denies palpitations. EKG reveals sinus mechanism with no signs of acute ischemia Chest xray patchy perihilar and interstitial airspace opacities may represent edema or infection. Small right pleural effusion. Carotid Doppler: Mild heterogeneous plaque with no significant stenosis seen. Laboratory data: WBC 5.8. Hemoglobin 12.7. Platelet count 178. D-dimer 0.8. Sodium 140. Potassium 5.2. BUN 34. Creatinine 1.01. BNP 1580. Troponin 0.051. 0.046. 0.046. 0.050. Current home cardiac medications include hydralazine 25 mg 3 times a day, simvastatin 40 mg daily, Vasotec 20 mg twice a day Echocardiogram completed reveals ejection fraction 60-65%, mild mitral regurgitation, and mild tricuspid regurgitation. REVIEW OF SYSTEMS: At the time of my exam: CONSTITUTIONAL: Denies fever or chills. HEENT: Denies blurred vision, vision changes, or eye pain. Denies hemoptysis CARDIOVASCULAR: Denies chest pain. Denies orthopnea. Denies PND. Denies palpitations RESPIRATORY: Denies shortness of breath. GASTROINTESTINAL: Denies abdominal pain. Denies nausea or vomiting. HEMATOLOGIC: Denies bleeding disorders. GENITOURINARY: Denies any blood in urine. SKIN: Denies pruitis. Denies rash. PHYSICAL EXAM: VITAL SIGNS: Reviewed. GENERAL: Well-developed in no acute distress. HEENT: Head is normocephalic. Pupils are equal, round. Sclerae anicteric. Mucous membranes of the mouth are moist. Neck supple. No JVD or thyromegaly LUNGS: Respirations even and unlabored. Lungs essentially clear to auscultation bilaterally. HEART: Regular rate and rhythm. S1 and S2 heard. ABDOMEN: Soft. Nondistended. Nontender. EXTREMITIES: Normal range of motion. No clubbing or cyanosis. Peripheral pulses intact. Trace bilateral lower extremity edema NEUROLOGIC: Awake. Oriented x 1-2. ASSESSMENT: Altered mental status Hypertension Hyperlipidemia Diabetes mellitus Abnormal troponins, not suggestive of acute coronary syndrome PLAN: 2-D echo obtained and reviewed Resume home cardiac medications Neurology following. MRI, MRA, and EEG ordered CT abdomen and pelvis and CTA ordered per internal medicine Patient is currently stable from a cardiac standpoint Further recommendations pending patient course Nurse practitioner note has been reviewed by physician. Signing provider agrees with the documented findings, assessment, and plan of care. Past Medical History Past Medical History: Diabetes Mellitus, Hypertension History of Any Multi-Drug Resistant Organisms: None Reported Additional Past Surgical History / Comment(s): left ankle surgery, tib/fib, ventral hernia, Past Anesthesia/Blood Transfusion Reactions: No Reported Reaction Past Psychological History: No Psychological Hx Reported Smoking Status: Never smoker Past Alcohol Use History: None Reported Past Drug Use History: None Reported Medications and Allergies Home Medications Medication Instructions Recorded Confirmed Type Ascorbic Acid [Vitamin C] 500 mg PO DAILY 10/04/20 02/27/21 History Cholecalciferol [Vitamin D3 (25 2,000 unit PO DAILY 10/04/20 02/27/21 History Mcg = 1000 Iu)] Enalapril [Vasotec] 20 mg PO BID 10/04/20 02/27/21 History Multivitamins, Thera [Multivitamin 1 tab PO DAILY 10/04/20 02/27/21 History (formulary)] Potassium Chloride [Klor-Con 20] 20 meq PO DAILY 10/04/20 02/27/21 History Simvastatin 40 mg PO HS 10/04/20 02/27/21 History hydrALAZINE HCL 25 mg PO TID 10/04/20 02/27/21 History Insulin NPH Hum/Reg Insulin Hm 20 unit SQ HS 02/27/21 02/27/21 History [NovoLIN 70-30 100 UNIT/ML VIAL] Insulin NPH Hum/Reg Insulin Hm 65 unit SQ QAM 02/27/21 02/27/21 History [NovoLIN 70-30 100 UNIT/ML VIAL] Allergies Allergy/AdvReac Type Severity Reaction Status Date / Time No Known Allergies Allergy Verified 10/04/20 19:12 Physical Exam Vitals: Vital Signs Temp Pulse Pulse Resp BP BP Pulse Ox 02/28/21 04:00 97.5 F L 93 19 162/77 95 02/28/21 00:00 97.5 F L 93 16 144/75 97 02/27/21 20:48 88 02/27/21 20:39 88 02/27/21 20:00 97.5 F L 89 16 167/83 95 02/27/21 16:30 97.4 F L 98 20 159/93 97 02/27/21 16:08 97.5 F L 92 18 156/85 97 02/27/21 15:24 90 18 161/94 96 02/27/21 13:04 92 16 158/87 96 02/27/21 12:04 97.6 F 109 H 18 174/104 98 Intake and Output 02/27/21 02/28/21 02/28/21 22:59 06:59 14:59 Intake Total 0 200 Output Total 600 250 Balance -600 -50 Intake: Intake, IV Titration 200 Amount Dextrose 5%-0.45% NaCl 1, 200 000 ml @ 100 mls/hr IV . Q10H [facility] Rx#:[id number] Oral 0 Output: Urine 600 250 Straight 600 Other: Voiding Method Diaper Diaper Incontinent Incontinent # Voids 0 Weight 90.718 kg 98 kg Results 02/27/21 12:31 02/27/21 12:31 Cardiac Enzymes 02/27/21 02/27/21 02/27/21 Range/Units 12:31 12:31 15:41 AST 49 H (14-36) U/L Troponin I 0.051 H* 0.046 H* (0.000-0.034) ng/mL 02/27/21 02/27/21 Range/Units 18:21 20:10 AST (14-36) U/L Troponin I 0.046 H* 0.050 H* (0.000-0.034) ng/mL Coagulation 02/27/21 Range/Units 12:31 PT 9.6 (9.0-12.0) sec APTT 24.9 (22.0-30.0) sec CBC 02/27/21 Range/Units 12:31 WBC 5.8 (3.8-10.6) k/uL RBC 4.35 (3.80-5.40) m/uL Hgb 12.7 (11.4-16.0) gm/dL Hct 40.2 (34.0-46.0) % Plt Count 178 (150-450) k/uL Comprehensive Metabolic Panel 02/27/21 Range/Units 12:31 Sodium 140 (137-145) mmol/L Potassium 5.2 H (3.5-5.1) mmol/L Chloride 111 H (98-107) mmol/L Carbon Dioxide 22 (22-30) mmol/L BUN 34 H (7-17) mg/dL Creatinine 1.01 (0.52-1.04) mg/dL Glucose 153 H (74-99) mg/dL Calcium 10.9 H (8.4-10.2) mg/dL AST 49 H (14-36) U/L ALT 50 H (4-34) U/L Alkaline Phosphatase 132 H (38-126) U/L Total Protein 6.1 L (6.3-8.2) g/dL Albumin 3.4 L (3.5-5.0) g/dL Current Medications Generic Name Dose Route Start Last Admin Trade Name Freq PRN Reason Stop Dose Admin Albuterol/Ipratropium 3 ml 02/27/21 20:00 02/28/21 07:53 Ipratropium-Albuterol 3 Ml Neb INHALATION Not Given RT-QID JEFF Albuterol/Ipratropium 3 ml 02/27/21 19:43 Ipratropium-Albuterol 3 Ml Neb INHALATION RT-Q2H PRN Shortness Of Breath Or Wheezing Dextrose/Sodium Chloride 1,000 mls @ 100 mls/hr 02/27/21 19:45 02/28/21 06:21 Dextrose 5%-1/2ns Iv Soln IV 100 mls/hr .Q10H JEFF Administration Iopamidol 30 ml 02/28/21 06:00 Iopamidol Contrast (Oral Use) Vial PO 02/28/21 19:[address] Scan Naloxone HCl 0.2 mg 02/27/21 14:05 Naloxone 0.4 Mg/Ml 1 Ml Vial IV Q2M PRN Opioid Reversal Ondansetron HCl 4 mg 02/27/21 14:10 Ondansetron 4 Mg/2 Ml Vial IVP Q8HR PRN Nausea And Vomiting Intake and Output 02/27/21 02/28/21 02/28/21 22:59 06:59 14:59 Intake Total 0 200 Output Total 600 250 Balance -600 -50 Intake: Intake, IV Titration 200 Amount Dextrose 5%-0.45% NaCl 1, 200 000 ml @ 100 mls/hr IV . Q10H [facility] Rx#:[id number] Oral 0 Output: Urine 600 250 Straight 600 Other: Voiding Method Diaper Diaper Incontinent Incontinent # Voids 0 Weight 90.718 kg 98 kg 02/27/21 12:31 02/27/21 12:31
[2021-02-28 11:53] LABS: Chol/HDL Ratio 1.92
--- NOTE | 2021-02-28 12:01 | CT ---
EXAMINATION TYPE: CT angio chest DATE OF EXAM: 02/28/2021 COMPARISON: None HISTORY: Patient poor historian. CT DLP: 1919.8 mGycm CONTRAST: CT chest with contrast and 3D reconstruction with MIP imaging is performed with IV Contrast, patient injected with 80 mL of Isovue 370. Contrast-enhanced CT of the chest was performed through the course of the pulmonary arteries with stanislaw g and mediastinal window settings submitted. 3D reconstruction with MIP imaging was also performed. PULMONARY ARTERIES: There are a few tiny filling defects noted within the bilateral second and third order vessels left greater than right. No large central embolus is seen. LUNGS: Bilateral airspace consolidation noted left greater than right small effusions seen. MEDIASTINUM: Thoracic aorta is of normal caliber,however, evaluation is limited given timing of the contrast bolus. If there is concern for thoracic aortic pathology consider ARLEY. Correlate clinicall y . The heart is not enlarged. No evidence for mediastinal mass. No mediastinal lymph nodes greater than 1cm. HILAR STRUCTURES: No evidence for mass. No hilar lymph nodes greater than 1 cm. UPPER ABDOMEN: No significant abnormality is seen. IMPRESSION: 1. Findings felt to reflect mild pulmonary embolism. 2. Bilateral airspace consolidation left greater than right.
[2021-02-28 12:25] LABS: Glucose,Whole Blood 158 mg/dL (75-99)
[2021-02-28 12:26] LABS: Folate, Serum 20.5 ng/mL
--- NOTE | 2021-02-28 12:49 | CT ---
EXAMINATION TYPE: CT abdomen pelvis w con DATE OF EXAM: 02/28/2021 COMPARISON: None HISTORY: Patient poor historian. CT DLP: 1919.8 mGycm CONTRAST: CT scan of the abdomen and pelvis is performed with Oral Contrast and with IV Contrast, patient injec sabine with 80 mL of Isovue 370. Streak artifact limits. FINDINGS: LUNG BASES-: Basilar atelectasis and/or infiltrates noted. LIVER/GB: No calcified gallstones. No space occupying hepatic lesion. Biliary tree is of normal ca liber. PANCREAS: No inflammation. No distinct mass. SPLEEN: No splenic enlargement. No lesion seen. ADRENALS: No nodule. No thickening. KIDNEYS/BLADDER: No hydronephrosis. Calculus lower pole right kidney measures 2.3 cm. 4.9 cm cystic lesion upper pole left kidney. Adjacent lesion slightly increased attenuation with Hounsfield unit me asurement of approximately 40-45 and measures 3.3 cm. This may reflect a hemorrhagic or proteinaceous cyst. Urinary bladder grossly unremarkable. BOWEL: Normal appendix. Normal bowel caliber. No inflammation. Large low anterior abdominal wall he rnia containing numerous segments of small and large bowel. No evidence for obstructive change at thi s time or incarceration. GENITAL ORGANS: No gross abnormality. LYMPH NODES: No greater than 1cm abdominal or pelvic lymph nodes are appreciated. AORTA: No significant abnormality. OSSEOUS STRUCTURES: No significant abnormality is seen. OTHER: No significant additional abnormality is seen. IMPRESSION: 1. Nonobstructing calculus lower pole right kidney. 2. Complex cystic lesion upper pole left kidney may reflect hemorrhagic cyst or proteinaceous cyst. 3. Large midline lower anterior abdominal wall hernia.
[2021-02-28 13:27] LABS: Albumin 2.6 g/dL (3.5-5.0); Potassium 4.5 mmol/L (3.5-5.1); Total Bilirubin 0.2 mg/dL (0.2-1.3); Total Protein 5.1 g/dL (6.3-8.2)
[2021-02-28] MEDS ORDERED: HEPARIN SODIUM 1,000 UN/ML (10ML VL) IV ONE (13:47)
[2021-02-28] MEDS ORDERED: HEPARIN SODIUM 1,000 UN/ML (10ML VL) IV PRN (13:47)
[2021-02-28 14:21] LABS: Basophils % (A) 0 %; Eosinophils % (A) 0 %; HCT 41.5 % (34.0-46.0); HGB 13.3 gm/dL (11.4-16.0); Lymphocytes # (A) 0.2 k/uL (1.0-4.8); Lymphocytes % (A) 4 %; MCH 29.4 pg (25.0-35.0); MCV 92.1 fL (80.0-100.0); Mean Platelet Volume 7.6; Monocytes # (A) 0.4 k/uL (0-1.0); Monocytes % (A) 6 %; Neutrophils # (A) 5.8 k/uL (1.3-7.7); Neutrophils % (A) 89 %; Platelet Count 176 k/uL (150-450); RBC 4.51 m/uL (3.80-5.40); RDW 14.4 % (11.5-15.5); WBC 6.5 k/uL (3.8-10.6)
[2021-02-28] MEDS: HEPARIN SOD,PORK IN 0.45% NACL 25,000 UNIT in 0.45% NACL 1 250ML.BAG IV SCH (14:23)
[2021-02-28] MEDS: lisinopriL 20 MG TAB PO SCH ×2 (14:25→20:13)
[2021-02-28] MEDS: hydrALAZINE HCL 25 MG TAB PO SCH ×2 (14:25→23:14)
[2021-02-28 14:37] LABS: INR 0.9 (<1.2)
[2021-02-28 17:00] LABS: C Reactive Protein 3.2 mg/dL (<1.0)
[2021-02-28 17:24] LABS: Glucose,Whole Blood 214 mg/dL (75-99)
[2021-02-28] MEDS: PIPERACILLIN-TAZOBACTAM 3.375 GM in SODIUM CHLORIDE 0.9% 100 ML IVPB SCH ×2 (17:45→23:14)
--- NOTE | 2021-02-28 18:06 | HP ---
HISTORY AND PHYSICAL CHIEF COMPLAINT: Mental status changes. HISTORY OF PRESENT ILLNESS: This is another admission for this 65-year-old female who has a longstanding history of insulin-dependent diabetes mellitus. She has had excellent control lately and, at times, sugars have been slightly low and we have been cutting back on insulin. Apparently she was found confused on the floor of her dwelling and when EMS came, her blood sugar was 50. She could not give any history and kept repeating, "I am all right". In the emergency room, her CT of the brain was normal. Troponin was slightly elevated. REVIEW OF SYSTEMS: Unobtainable. She is not purposefully responsive. Past medical history, family history and personal and social histories reveal that she has had a longstanding history of diabetes for which she is on hydralazine 25 mg t.i.d., Novolin 70/30, 65 units in the morning and 20 at night, potassium 20 mEq once a day, simvastatin 40 mg q.h.s., enalapril 20 mg twice a day, vitamin D and aspirin. ALLERGIES: SHE IS ALLERGIC TO CALCIUM CHANNEL BLOCKERS, PENICILLIN, SULFA, VICODIN. Past medical history, family history and personal and social histories are otherwise unremarkable and noncontributory. She does not smoke or drink and never has. She has a large umbilical hernia which does not bother her. PHYSICAL EXAMINATION: Blood pressure is 160/85 with a pulse of 83, respirations of 20 and she is afebrile. In general, she appeared to be slightly overweight and in no acute distress. Skin was dry. Lymph nodes not enlarged. Head, ears, eyes, nose, mouth and throat were unremarkable except for mild conjunctivitis. Chest is clear. Cardiac exam was normal sinus rhythm. Abdomen is soft, nontender with a large umbilical hernia. Extremities: Normal. NEUROLOGICALLY: She was lethargic and could not be awakened significantly. When she was, she was not appropriate. She had no lateralizing cranial nerve or sensory motor findings. IMPRESSION: 1. Possible cerebrovascular accident. 2. Possible transient ischemic attack. 3. Possible central nervous system damage secondary to hypoglycemia. 4. Insulin-dependent diabetes mellitus. 5. Hypertension. 6. Umbilical hernia. PLAN: 1. Bedrest. 2. IV fluids. 3. Frequent monitoring of her neurologic status and vital signs. 4. Frequent monitoring of her blood sugars. 5. Neurology consult. 6. Cardiology consult because of elevated troponin. 7. D-dimer. MMODL / IJN: [id number] /
--- NOTE | 2021-02-28 18:36 | PN ---
PROGRESS NOTE One dating prior son Henna Aldridge for the chief complaint mental status changes. HISTORY OF PRESENT ILLNESS: This lady is about the same. She is very lethargic, very difficult to arouse. When she is aroused, she is not appropriate and falls right back to sleep. There has been no other abnormality noted. D-dimer is ordered. PHYSICAL EXAMINATION: Chest is clear. The cardiac exam is normal. Abdomen is soft, nontender. IMPRESSION: 1. Mental status changes. 2. Possible anoxic or metabolic brain injury. 3. Possible cerebrovascular accident. 4. Elevated troponins. PLAN: Continue to monitor and await results of neurologic evaluation. MMODL / IJN: [id number] /
[2021-02-28] MEDS: ATORVASTATIN 20 MG TAB PO SCH (20:12)
[2021-02-28 20:14] LABS: Glucose,Whole Blood 227 mg/dL (75-99)
--- NOTE | 2021-02-28 20:51 | EEG ---
ELECTROENCEPHALOGRAM REPORT DATE OF SERVICE: 02/28/2021 PREAMBLE: This is a 65-year-old female with altered mental status. Rule out any epileptiform activity. EEG FINDINGS: This is a 21-channel routine EEG recording on a patient utilizing 10/20 international system with referential and bipolar montages. Background consists of well- developed, poorly regulated, diffuse slow wave activity in mixed theta and delta range seen in bihemispheric regions. There is a relatively high amplitude slowing seen in the bitemporal region as well. Different stages of sleep were not seen. Photic driving response was not seen. Reactive to eye opening and closing was not seen. No definitive epileptiform activity was seen. IMPRESSION: This is an abnormal EEG due to background slowing of at least moderate to severe degree. This is suggestive of generalized cerebral dysfunction as can be seen with toxic metabolic encephalopathy or due to diffuse structural brain abnormality. No definitive epileptiform activity was seen. MMODL / IJN: [id number] / MTDD
--- NOTE | 2021-02-28 22:03 | MR ---
MRI OF THE BRAIN WO History: Follow-up stroke. COMPARISON: CT 02/27/2021. TECHNIQUE: Multiplanar multisequence MR imaging of the brain was obtained without the use of IV cont rast. FINDINGS: No restricted diffusion is noted to suggest acute ischemic infarct.No acute intracranial hemorrhage o r abnormal extra-axial fluid collection are noted.There is no midline shift or mass effect. There is moderate T2 FLAIR white matter hyperintensities, in keeping with chronic microvascular ischemic martinez es. There is mild parenchymal volume loss. Visualized vascular flow voids are unremarkable. Visualized paranasal sinuses and mastoid air cells are patent and aerated. IMPRESSION: No acute infarct or intracranial abnormality. Chronic microvascular ischemic changes.
[2021-03-01] MEDS: DEXTROSE 5%-0.45% NACL 1,000 ML IV SCH ×4 (06:06→22:58)
[2021-03-01 06:11] LABS: Glucose,Whole Blood 232 mg/dL (75-99)
[2021-03-01] MEDS: HEPARIN SOD,PORK IN 0.45% NACL 25,000 UNIT in 0.45% NACL 1 250ML.BAG IV SCH (07:06)
[2021-03-01] MEDS: IPRATROPIUM-ALBUTEROL 3 ML NEB INHALATION SCH ×4 (07:44→20:17)
[2021-03-01] MEDS: PIPERACILLIN-TAZOBACTAM 3.375 GM in SODIUM CHLORIDE 0.9% 100 ML IVPB SCH ×3 (08:00→22:58)
[2021-03-01 08:34] LABS: Basophils % (A) 0 %; Eosinophils % (A) 0 %; HCT 37.6 % (34.0-46.0); HGB 12.4 gm/dL (11.4-16.0); Lymphocytes # (A) 0.4 k/uL (1.0-4.8); Lymphocytes % (A) 8 %; MCH 30.2 pg (25.0-35.0); MCHC 33.1 g/dL (31.0-37.0); MCV 91.4 fL (80.0-100.0); Mean Platelet Volume 7.3; Monocytes # (A) 0.4 k/uL (0-1.0); Monocytes % (A) 8 %; Neutrophils % (A) 81 %; Platelet Count 173 k/uL (150-450); RBC 4.11 m/uL (3.80-5.40); RDW 14.5 % (11.5-15.5)
[2021-03-01] MEDS: hydrALAZINE HCL 25 MG TAB PO SCH ×3 (10:42→22:19)
[2021-03-01] MEDS: lisinopriL 20 MG TAB PO SCH ×2 (10:42→20:21)
[2021-03-01 11:39] LABS: Glucose,Whole Blood 263 mg/dL (75-99)
--- NOTE | 2021-03-01 12:32 | P.CNPUL ---
History of Present Illness Consult date: 03/01/21 Requesting physician: Luis Velásquez Reason for consult: pneumonia, pulmonary embolism Chief complaint: Pneumonia, pulmonary embolism. History of present illness: Pulmonary consult dated 03/01/2021. 65-year-old female, who was seen in the emergency department on February 27. She was brought in because of mental status changes by EMS. She apparently was found by [facility] [facility], when she did not answer her door. The patient was found to be hypoglycemic, was given dextrose, but there is no improvement in her mentation. She apparently had a recent hospitalization for seizures, and UTI. She's currently being evaluated by number of services including neurology. We are asked to see her, because a chest x-ray showed possible pneumonia, and small pulmonary emboli. Currently, the patient's on IV heparin. She apparently is going to be switched to a factor X a inhibitor, I believe Eliquis. She does not appear to be short of breath. The patient is on 2 L nasal cannula with saturati ons of 94%. Respiratory rate 18, heart rate 90, temperature 98.2, and blood pressure 129/61. Patient's white count is 5, hemoglobin 12.4, hematocrit 37.6, and platelet count 173,000. PTT is greater than 120. D-dimer 0.98. Sodium 135, potassium 4.5, chlorides 109, CO2 20, anion gap 6, BUN 28, creatinine 0.89. Pro-calcitonin level is 0.10. TSH is normal. Drug screen is negative. Testing for back virus is negative. Chest x-ray from February 27 shows patchy perihilar and interstitial airspace opacities which may represent edema or infection. There is also a small right-sided pleural effusion. A CT angiogram done on February 28, showed a few tiny filling defects noted within the bilateral sec ond and third order vessels left greater than right. Also, there is bilateral airspace consolidation noted left greater than right, with small effusions. Review of Systems REVIEW OF SYSTEMS: CONSTITUTIONAL: [Negative.] NEUROLOGIC: Mental status changes. HEENT: [ Negative.] CARDIAC: [Negative.] PULMONARY: [Negative.] GI: [Negative.] : [Negative.] RHEUMATOLOGIC: [ Negative.] IMMUNOLOGIC: [ Negative.] ENDOCRINE: [Negative. ] DERMATOLOGIC: [Negative.] Past Medical History Past Medical History: Diabetes Mellitus, Hypertension History of Any Multi-Drug Resistant Organisms: None Reported Additional Past Surgical History / Comment(s): left ankle surgery, tib/fib, marc tral hernia, Past Anesthesia/Blood Transfusion Reactions: No Reported Reaction Past Psychological History: No Psychological Hx Reported Smoking Status: Never smoker Past Alcohol Use History: None Reported Past Drug Use History: None Reported Medications and Allergies Home Medications Medication Instructions Recorded Confirmed Type Ascorbic Acid [Vitamin C] 500 mg PO DAILY 10/04/20 02/27/21 History Cholecalciferol [Vitamin D3 (25 2,000 unit PO DAILY 10/04/20 02/27/21 History Mcg = 1000 Iu)] Enalapril [Vasotec] 20 mg PO BID 10/04/20 02/27/21 History Multivitamins, Thera [Multivitamin 1 tab PO DAILY 10/04/20 02/27/21 History (formulary)] Potassium Chloride [Klor-Con 20] 20 meq PO DAILY 10/04/20 02/27/21 History Simvastatin 40 mg PO HS 10/04/20 02/27/21 History hydrALAZINE HCL 25 mg PO TID 10/04/20 02/27/21 History Insulin NPH Hum/Reg Insulin Hm 20 unit SQ HS 02/27/21 02/27/21 History [NovoLIN 70-30 100 UNIT/ML VIAL] Insulin NPH Hum/Reg Insulin Hm 65 unit SQ QA 02/27/21 02/27/21 History [NovoLIN 70-30 100 UNIT/ML VIAL] Apixaban [Eliquis] 5 mg PO BID #60 tab 03/01/21 Rx Allergies Allergy/AdvReac Type Severity Reaction Status Date / Time No Known Allergies Allergy Verified 10/04/20 19:12 Physical Exam Osteopathic Statement: *. No significant issues noted on an osteopathic structural exam other than those noted in the History and Physical/Consult. Vitals: Vital Signs Temp Pulse Pulse Resp BP Pulse Ox 03/01/21 11:21 88 03/01/21 11:11 84 03/01/21 08:00 98.2 F 90 18 129/61 94 L 03/01/21 07:55 89 03/01/21 07:45 88 03/01/21 03:32 97.9 F 87 18 144/72 95 03/01/21 00:39 91 18 03/01/21 00:00 98.1 F 90 17 161/72 97 02/28/21 20:06 92 02/28/21 20:00 98.1 F 90 17 162/91 97 02/28/21 19:51 90 02/28/21 16:00 97.6 F 83 18 162/81 91 L 02/28/21 15:31 88 02/28/21 15:22 90 Intake and Output 02/28/21 03/01/21 03/01/21 22:59 06:59 14:59 Intake Total 155.526 87.71 Output Total 400 650 Balance -400 -494.474 87.71 Intake: Intake, IV Titration 155.526 87.71 Amount Heparin Sod,Pork in 0.45% 155.526 87.71 NaCl 25,000 unit In 0.45 % NaCl 1 250ml.bag @ 18 UNITS/KG/HR 17.64 mls/hr IV .[id number] [facility] Rx#: [id number] Oral 0 Output: Urine 400 650 Other: Voiding Method Indwelling Catheter Indwelling Catheter # Bowel Movements 1 Weight 98.5 kg No acute distress, oriented 3. No conversational dyspnea or use of accessory muscles. 2 L saturation is 94%. HEENT examination is grossly unremarkable. Neck supple. Full range of motion. No adenopathy thyromegaly or neck vein distention. Cardiovascular examination reveals regular rhythm rate. S1-S2 normal. No S3 or S4. No discernible murmur noted. Heart rate 88 bpm. Lungs reveal few scattered rhonchi. No wheezes or crackles. Breath sounds equal. Saturations 94% on 2 L. Abdomen soft bowel sounds are heard. No masses or tenderness. Extremities are intact. No cyanosis clubbing or edema. Skin is without rash or lesion. Neurologic examination is brief but nonfocal. Results - Laboratory Findings CBC and BMP: 03/01/21 08:22 02/28/21 07:41 PT/INR, D-dimer PT 10.0 sec (9.0-12.0) 02/28/21 13:53 INR 0.9 (<1.2) 02/28/21 13:53 D-Dimer 0.98 mg/L FEU (<0.60) H 02/27/21 20:10 Abnormal lab findings: Abnormal Labs 02/27/21 02/27/2102/27/21 11:52 12:31 12:31 Lymphocytes # 0.6 L APTT D-Dimer Sodium Potassium Chloride Carbon Dioxide BUN Glucose POC Glucose (mg/dL) 140 H Plasma Lactic Acid Marc Calcium AST ALT Alkaline Phosphatase Troponin I C-Reactive Protein Total Protein Albumin HDL Cholesterol Vitamin B12 Procalcitonin Urine Protein 3+ H Urine Ketones 1+ H Urine Bacteria Rare H Urine Mucus Few H 02/27/21 02/27/21 02/27/21 12:31 12:31 12:31 Lymphocytes # APTT D-Dimer Sodium Potassium 5.2 H Chloride 111 H Carbon Dioxide BUN 34 H Glucose 153 H POC Glucose (mg/dL) Plasma Lactic Acid Marc Calcium 10.9 H AST 49 H ALT 50 H Alkaline Phosphatase 132 H Troponin I 0.051 H* C-Reactive Protein Total Protein 6.1 L Albumin 3.4 L HDL Cholesterol Vitamin B12 1019.0 H Procalcitonin Urine Protein Urine Ketones Urine Bacteria Urine Mucus 02/27/21 02/27/21 02/27/21 15:41 16:40 18:21 Lymphocytes # APTT D-Dimer Sodium Potassium Chloride Carbon Dioxide BUN Glucose POC Glucose (mg/dL) 102 H Plasma Lactic Acid Marc Calcium AST ALT Alkaline Phosphatase Troponin I 0.046 H* 0.046 H* C-Reactive Protein Total Protein Albumin HDL Cholesterol Vitamin B12 Procalcitonin Urine Protein Urine Ketones Urine Bacteria Urine Mucus 02/27/21 02/27/21 02/27/21 19:57 20:10 20:10 Lymphocytes # APTT D-Dimer 0.98 H Sodium Potassium Chloride Carbon Dioxide BUN Glucose POC Glucose (mg/dL) 104 H Plasma Lactic Acid Marc Calcium AST ALT Alkaline Phosphatase Troponin I 0.050 H* C-Reactive Protein Total Protein Albumin HDL Cholesterol Vitamin B12 Procalcitonin Urine Protein Urine Ketones Urine Bacteria Urine Mucus 02/27/21 02/28/21 02/28/21 20:10 06:08 07:41 Lymphocytes # APTT D-Dimer Sodium Potassium Chloride Carbon Dioxide BUN Glucose POC Glucose (mg/dL) 180 H Plasma Lactic Acid Marc 0.6 L Calcium AST ALT Alkaline Phosphatase Troponin I C-Reactive Protein Total Protein Albumin HDL Cholesterol 65.0 H Vitamin B12 Procalcitonin Urine Protein Urine Ketones Urine Bacteria Urine Mucus 02/28/21 02/28/21 02/28/21 07:41 12:22 13:53 Lymphocytes # 0.2 L APTT D-Dimer Sodium 135 L Potassium Chloride 109 H Carbon Dioxide 20 L BUN 28 H Glucose 387 H POC Glucose (mg/dL) 158 H Plasma Lactic Acid Marc Calcium AST ALT 35 H Alkaline Phosphatase Troponin I C-Reactive Protein Total Protein 5.1 L Albumin 2.6 L HDL Cholesterol Vitamin B12 Procalcitonin Urine Protein Urine Ketones Urine Bacteria Urine Mucus 02/28/21 02/28/21 02/28/21 13:53 13:53 17:22 Lymphocytes # APTT D-Dimer Sodium Potassium Chloride Carbon Dioxide BUN Glucose POC Glucose (mg/dL) 214 H Plasma Lactic Acid Marc Calcium AST ALT Alkaline Phosphatase Troponin I C-Reactive Protein 3.2 H Total Protein Albumin HDL Cholesterol Vitamin B12 Procalcitonin 0.10 H Urine Protein Urine Ketones Urine Bacteria Urine Mucus 02/28/21 02/28/21 03/01/21 20:12 20:46 06:10 Lymphocytes # APTT >200.0 H* D-Dimer Sodium Potassium Chloride Carbon Dioxide BUN Glucose POC Glucose (mg/dL) 227 H 232 H Plasma Lactic Acid Marc Calcium AST ALT Alkaline Phosphatase Troponin I C-Reactive Protein Total Protein Albumin HDL Cholesterol Vitamin B12 Procalcitonin Urine Protein Urine Ketones Urine Bacteria Urine Mucus 03/01/21 03/01/21 03/01/21 08:22 08:22 11:37 Lymphocytes # 0.4 L APTT 120.0 H* D-Dimer Sodium Potassium Chloride Carbon Dioxide BUN Glucose POC Glucose (mg/dL) 263 H Plasma Lactic Acid Marc Calcium AST ALT Alkaline Phosphatase Troponin I C-Reactive Protein Total Protein Albumin HDL Cholesterol Vitamin B12 Procalcitonin Urine Protein Urine Ketones Urine Bacteria Urine Mucus - Diagnostic Findings Chest x-ray: image reviewed CT scan - chest: image reviewed Assessment and Plan Assessment: Mental status changes, currently being evaluated by the primary service and neurology. Tiny, bilateral pulmonary emboli, currently on IV heparin, to be switched to a factor X a inhibitor. Bilateral lower lobe infiltrates, with small effusions, doubt pneumonia, given the very low pro-calcitonin level, patient currently on Zosyn. History of diabetes mellitus. History of hypertension. History of hyperlipidemia. History of urinary tract infection, September 2020. Plan: Plan dated 03/01/2021. Currently, the patient appears to be relatively stable from the pulmonary standpoint. I highly doubt pneumonia as an etiology at this time, given her lack of pulmonary complaints, such as cough, phlegm production, and fever, and the fact that her pro-calcitonin level is so low. Currently on IV heparin for her small pulmonary emboli. She'll be switched to a factor X a inhibitor. Prognosis is guarded. Additional recommendations are made. Time with Patient: Greater than 30
--- NOTE | 2021-03-01 13:49 | P.PN ---
Subjective Progress Note Date: 03/01/21 HISTORY OF PRESENT ILLNESS: This is a 65-year-old female with a past medical history significant for hypertension and diabetes mellitus. 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 We have been asked to see the patient in consultation for elevated troponins. According to the ER physician note, the patient was brought to the hospital after she did not answer the door for [facility] and altered mental status. Patient examined at the bedside. Patient is a poor historian. Patient unable to tell me why she is at the hospital or what events led up to her coming in. Patient denies chest pain or pressure. She denies shortness of breath. Denies palpitations. EKG reveals sinus mechanism with no signs of acute ischemia Chest xray patchy perihilar and interstitial airspace opacities may represent edema or infection. Small right pleural effusion. Carotid Doppler: Mild heterogeneous plaque with no significant stenosis seen. Laboratory data: WBC 5.8. Hemoglobin 12.7. Platelet count 178. D-dimer 0.8. Sodium 140. Potassium 5.2. BUN 34. Creatinine 1.01. BNP 1580. Troponin 0.051. 0.046. 0.046. 0.050. Current home cardiac medications include hydralazine 25 mg 3 times a day, simvastatin 40 mg daily, Vasotec 20 mg twice a day Echocardiogram completed reveals ejection fraction 60-65%, mild mitral regurgitation, and mild tricuspid regurgitation. 03/01/2021 Patient examined this morning at the bedside. Patient denies chest pain or pressure. She denies shortness of breath. Echocardiogram completed revealing ejection fraction 60-65%. Patient underwent CTA yesterday revealing mild pulmonary embolism. She has been started on IV heparin. PHYSICAL EXAM: VITAL SIGNS: Reviewed. GENERAL: Well-developed in no acute distress. HEENT: Head is normocephalic. Pupils are equal, round. Sclerae anicteric. Mucous membranes of the mouth are moist. Neck supple. No JVD or thyromegaly LUNGS: Respirations even and unlabored. Lungs essentially clear to auscultation bilaterally. HEART: Regular rate and rhythm. S1 and S2 heard. EXTREMITIES: Normal range of motion. No clubbing or cyanosis. Peripheral pulses intact. Trace bilateral lower extremity edema ASSESSMENT: Altered mental status Hypertension Hyperlipidemia Diabetes mellitus Abnormal troponins, not suggestive of acute coronary syndrome Small bilateral pulmonary emboli PLAN: Continue current cardiac medications Begin Eliquis Discontinue IV heparin No further inpatient recommendations from a cardiac standpoint We will sign off. please reconsult if needed. Nurse practitioner note has been reviewed by physician. Signing provider agrees with the documented findings, assessment, and plan of care. Objective - Vital Signs Vital signs: Vital Signs Temp 98.2 F 03/01/21 08:00 Pulse 88 03/01/21 11:21 Resp 18 03/01/21 08:00 BP 129/61 03/01/21 08:00 Pulse Ox 94 L 03/01/21 08:00 Intake & Output 02/28/21 03/01/21 03/01/21 18:59 06:59 18:59 Intake Total 155.526 87.71 Output Total 800 650 Balance -800 -494.474 87.71 Weight 98.5 kg Intake: Intake, IV Titration 155.526 87.71 Amount Heparin Sod,Pork in 0.45% 155.526 87.71 NaCl 25,000 unit In 0.45 % NaCl 1 250ml.bag @ 18 UNITS/KG/HR 17.64 mls/hr IV .[id number] [facility] Rx#: [id number] Oral 0 Output: Urine 800 650 Straight 400 Other: Voiding Method Indwelling Catheter Indwelling Catheter Indwelling Catheter # Bowel Movements 1 - Labs CBC & Chem 7: 03/01/21 08:22 02/28/21 07:41 Labs: Abnormal Lab Results - Last 24 Hours (Table) 02/28/21 02/28/21 02/28/21 Range/Units 13:53 13:53 13:53 Lymphocytes # 0.2 L (1.0-4.8) k/uL APTT (22.0-30.0) sec POC Glucose (mg/dL) (75-99) mg/dL C-Reactive Protein 3.2 H (<1.0) mg/dL Procalcitonin 0.10 H (0.02-0.09) ng/mL 02/28/21 02/28/21 02/28/21 Range/Units 17:22 20:12 20:46 Lymphocytes # (1.0-4.8) k/uL APTT >200.0 H* (22.0-30.0) sec POC Glucose (mg/dL) 214 H 227 H (75-99) mg/dL C-Reactive Protein (<1.0) mg/dL Procalcitonin (0.02-0.09) ng/mL 03/01/21 03/01/21 03/01/21 Range/Units 06:10 08:22 08:22 Lymphocytes # 0.4 L (1.0-4.8) k/uL APTT 120.0 H* (22.0-30.0) sec POC Glucose (mg/dL) 232 H (75-99) mg/dL C-Reactive Protein (<1.0) mg/dL Procalcitonin (0.02-0.09) ng/mL 03/01/21 Range/Units 11:37 Lymphocytes # (1.0-4.8) k/uL APTT (22.0-30.0) sec POC Glucose (mg/dL) 263 H (75-99) mg/dL C-Reactive Protein (<1.0) mg/dL Procalcitonin (0.02-0.09) ng/mL Microbiology - Last 24 Hours (Table) 02/27/21 20:10 Blood Culture - Preliminary Blood No Growth after 24 hours 02/27/21 20:10 Blood Culture - Preliminary Blood No Growth after 24 hours
[2021-03-01] MEDS ORDERED: APIXABAN 5 MG TAB PO SCH (14:00)
[2021-03-01] MEDS: APIXABAN 5 MG TAB PO SCH ×2 (16:09→22:19)
--- NOTE | 2021-03-01 16:32 | PN ---
PROGRESS NOTE DATE OF SERVICE: 03/01/2021 CHIEF COMPLAINT: Mental status changes. HISTORY OF PRESENT ILLNESS: This lady is slightly better. She is still quite lethargic. She does answer questions appropriately. Blood sugars are up slightly and around 263, but this is not an issue at this point. It is felt likely that she has encephalopathy, possibly related to hypoglycemia experience at home. PHYSICAL EXAMINATION: She is dehydrated. Chest is clear. Cardiac exam is normal. Abdomen is soft, nontender. Extremities are normal. IMPRESSION: 1. Encephalopathy. 2. Likely episode of hypoglycemia. 3. Insulin-dependent diabetes mellitus. 4. Pneumonitis. 5. Pulmonary embolism. 6. Elevated troponins. PLAN: 1. Increase IV fluids. 2. Continue to monitor in terms of her neurologic function. 3. She will also be started on physical therapy, occupational therapy and discharge planning. KIA / PHILIP: [id number] /
[2021-03-01 16:47] LABS: Glucose,Whole Blood 265 mg/dL (75-99)
[2021-03-01] MEDS: ATORVASTATIN 20 MG TAB PO SCH (20:21)
[2021-03-01 20:41] LABS: Glucose,Whole Blood 385 mg/dL (75-99)
--- NOTE | 2021-03-01 23:04 | PN ---
PROGRESS NOTE DATE OF SERVICE: 03/01/2021 REASON FOR FOLLOWUP: Pneumonia. INTERVAL HISTORY: The patient is afebrile. The patient seemed to be more awake and alert today. She is breathing comfortably. The patient denies having any chest pain. Did have a cough, not bringing up sputum. No abdominal pain. No diarrhea. PHYSICAL EXAMINATION: Blood pressure 126/60 with a pulse of 59, temperature 98.5. She is 94% on room air. General description is an elderly female lying in bed in no distress. Respiratory system: Unlabored breathing, decreased breath sounds at bases. No wheeze. Heart S1, S2. Regular rate and rhythm. ABDOMEN: Soft, no tenderness Extremities are no edema of the feet. LABS: Hemoglobin is 12.4, white count 5.0. DIAGNOSTIC IMPRESSION AND PLAN: Patient admitted to the hospital with mental status changes, multifactorial in this patient who did have evidence of pain plus-minus component of possible pneumonia. Patient is covered with Zosyn to continue. Try to obtain a sputum to narrow down antibiotics and monitor clinical course closely. MMODL / IJN: [id number] /
[2021-03-01] MEDS: INSULIN ASPART (NovoLOG) 100 UNIT/ML VIAL SQ SCH (23:42)
--- NOTE | 2021-03-02 02:57 | P.PN ---
Subjective Progress Note Date: 02/28/21 02/28/2021: Patient was seen for a follow-up. Patient is improved as compared to yesterday. Patient is laying comfortably in the bed. Patient states she feels "okay". Please refer to examination below. Telemetry monitoring so far showing sinus rhythm. No A. fib. Patient is a 65-year-old female came to the hospital today at 11:38 AM by ambulance. Patient not able to provide any history. As per EMS flow sheet, it was reported that patient has assisted living with [facility]. Staff was stating that patient is altered and not responding appropriately. Patient was alert and oriented 1 area did patient was noted to be tachypneic. Unknown last known well. Patient's blood sugar was 63. D50 was administered patient shortly after became more oriented and became oriented 2. Repeat blood sugar was 270. Patient's blood pressure was 161/85, pulse rate 105, respiration 24. Vital signs on arrival blood pressure 174/104, pulse rate 109 and temperature 97.6. Patient underwent computed tomography scan of the head, which revealed age- related atrophic and chronic small vessel ischemic changes without acute intracranial process seen at this time. Chest x-ray revealed patchy perihilar and interstitial airspace opacities may represent edema or infection. EKG shows normal sinus rhythm. Carotid Doppler has been performed, which revealed mild heterogeneous plaque with no significant stenosis. Blood test shows normal CBC, PT/PTT. Sodium is normal potassium 5.2, BUN 34 creatinine 1.01. Calcium 10.9 AST is 49, ALT 50. Ammonia is normal. Troponins are mildly elevated. UA is ne gative. Urine drug screen negative. Islas virus negative. Patient at present is very confused, states she is 52 years of age. Please refer to examination below. She perseverates. Patient states that she lives alone has no children. She denies headache, denies any pain. She does not know who brought her to the hospital. Objective - Vital Signs Vital signs: Vital Signs Temp 97.6 F 02/28/21 16:00 Pulse 92 02/28/21 20:06 Resp 18 02/28/21 16:00 BP 162/81 02/28/21 16:00 Pulse Ox 91 L 02/28/21 16:00 Intake & Output 02/28/21 02/28/21 03/01/21 06:59 18:59 06:59 Intake Total 200 Output Total 850 800 Balance -650 -800 Weight 98 kg Intake: Intake, IV Titration 200 Amount Dextrose 5%-0.45% NaCl 1, 200 000 ml @ 100 mls/hr IV . Q10H [facility] Rx#:[id number] Output: Urine 850 800 Straight 600 400 Other: Voiding Method Diaper Indwelling Catheter Incontinent # Voids 0 - Exam On examination patient continues to keep her eyes closed. Her pupils are round and reacting. Face is symmetric. Patient states this is February and the year is 1973. She states her age is 34. She knows that she is in [facility] in [place]. She states the president is "[place]". She perseverates on [place]. There is no pronator drift. Biceps, triceps and hatchery man are good. Deltoids are 4+ at least. Ankles and toes are normal. She did not cooperate for hip flexion. Tone is normal in the arms. In the lower extremities. Tone is increased and she did not cooperate. - Labs CBC & Chem 7: 03/01/21 08:22 02/28/21 07:41 Labs: Abnormal Lab Results - Last 24 Hours (Table) 02/27/21 02/28/21 02/28/21 Range/Units 12:31 06:08 07:41 Lymphocytes # (1.0-4.8) k/uL Sodium (137-145) mmol/L Chloride (98-107) mmol/L Carbon Dioxide (22-30) mmol/L BUN (7-17) mg/dL Glucose (74-99) mg/dL POC Glucose (mg/dL) 180 H (75-99) mg/dL ALT (4-34) U/L C-Reactive Protein (<1.0) mg/dL Total Protein (6.3-8.2) g/dL Albumin (3.5-5.0) g/dL HDL Cholesterol 65.0 H (40.0-60.0) mg/dL Vitamin B12 1019.0 H (200.0-944.0) pg/mL 02/28/21 02/28/21 02/28/21 Range/Units 07:41 12:22 13:53 Lymphocytes # 0.2 L (1.0-4.8) k/uL Sodium 135 L (137-145) mmol/L Chloride 109 H (98-107) mmol/L Carbon Dioxide 20 L (22-30) mmol/L BUN 28 H (7-17) mg/dL Glucose 387 H (74-99) mg/dL POC Glucose (mg/dL) 158 H (75-99) mg/dL ALT 35 H (4-34) U/L C-Reactive Protein (<1.0) mg/dL Total Protein 5.1 L (6.3-8.2) g/dL Albumin 2.6 L (3.5-5.0) g/dL HDL Cholesterol (40.0-60.0) mg/dL Vitamin B12 (200.0-944.0) pg/mL 02/28/21 02/28/21 02/28/21 Range/Units 13:53 17:22 20:12 Lymphocytes # (1.0-4.8) k/uL Sodium (137-145) mmol/L Chloride (98-107) mmol/L Carbon Dioxide (22-30) mmol/L BUN (7-17) mg/dL Glucose (74-99) mg/dL POC Glucose (mg/dL) 214 H 227 H (75-99) mg/dL ALT (4-34) U/L C-Reactive Protein 3.2 H (<1.0) mg/dL Total Protein (6.3-8.2) g/dL Albumin (3.5-5.0) g/dL HDL Cholesterol (40.0-60.0) mg/dL Vitamin B12 (200.0-944.0) pg/mL Microbiology - Last 24 Hours (Table) 02/27/21 20:10 Blood Culture - Preliminary Blood No Growth after 24 hours 02/27/21 20:10 Blood Culture - Preliminary Blood No Growth after 24 hours Assessment and Plan Assessment: * Altered mental status, possible due to toxic metabolic encephalopathy. Rule out CVA. * Pneumonia, on Zosyn. * Diabetes * Hypertension * Hyperlipidemia Plan: * Await MRI of the brain to evaluate for an acute stroke. * EEG was performed, which revealed background slowing of moderate to severe degree, consistent with encephalopathy. No epileptiform activity was seen. * Carotid Doppler revealed mild heterogeneous plaque with no significant stenosis. Antegrade flow in both vertebral arteries. * 2-D echo revealed normal left-ventricular size. Mild concentric LVH. EF is 60-65%. Aneurysmal interatrial septum. * Fasting lipid panel cholesterol 125, LDL 47, HDL 65 and triglycerides 65. * Hemoglobin A1c 5.3, * B12 1019, folate 20.5, TSH 1.76 normal. * Continue 325 mg daily. If cannot take by mouth, would recommend rectal aspirin. * We will follow.
--- NOTE | 2021-03-02 03:04 | P.PN ---
Subjective Progress Note Date: 03/01/21 03/01/2021: Patient was seen by Tele-neurology today. Patient is doing much more better. Please refer to examination below. Patient is laying comfortably in the bed. According to report from patient's primary physician, patient is at baseline oriented 3. Patient has no family, lives independently. Patient has a friend, who is her guardian. Patient now has been diagnosed with acute PE. On anticoagulation. 02/28/2021: Patient was seen for a follow-up. Patient is improved as compared to yesterday. Patient is laying comfortably in the bed. Patient states she feels "okay". Please refer to examination below. Telemetry monitoring so far showing sinus rhythm. No A. fib. Patient is a 65-year-old female came to the hospital today at 11:38 AM by ambulance. Patient not able to provide any history. As per EMS flow sheet, it was reported that patient has assisted living with [facility]. Staff was stating that patient is altered and not responding appropriately. Patient was alert and oriented 1 area did patient was noted to be tachypneic. Unknown last known well. Patient's blood sugar was 63. D50 was administered patient shortly after became more oriented and became oriented 2. Repeat blood sugar was 270. Patient's blood pressure was 161/85, pulse rate 105, respiration 24. Vital signs on arrival blood pressure 174/104, pulse rate 109 and temperature 97.6. Patient underwent computed tomography scan of the head, which revealed age- related atrophic and chronic small vessel ischemic changes without acute intracranial process seen at this time. Chest x-ray revealed patchy perihilar and interstitial airspace opacities may represent edema or infection. EKG shows normal sinus rhythm. Carotid Doppler has been performed, which revealed mild heterogeneous plaque with no significant stenosis. Blood test shows normal CBC, PT/PTT. Sodium is normal potassium 5.2, BUN 34 creatinine 1.01. Calcium 10.9 AST is 49, ALT 50. Ammonia is normal. Troponins are mildly elevated. UA is negative. Urine drug screen negative. Islas virus negative. Patient at present is very confused, states she is 52 years of age. Please refer to examination below. She perseverates. Patient states that she lives alone has no children. She denies headache, denies any pain. She does not know who brought her to the hospital. Objective - Vital Signs Vital signs: Vital Signs Temp 98.6 F 03/01/21 23:34 Pulse 92 03/01/21 23:34 Resp 18 03/01/21 23:34 BP 119/53 03/01/21 23:34 Pulse Ox 92 L 03/01/21 23:34 Intake & Output 03/01/21 03/01/21 03/02/21 06:59 18:59 06:59 Intake Total 155.526 337.71 375 Output Total 335 227 6650 Balance -494.474 -12.29 -625 Weight 98.5 kg Intake: IV 10 Invasive Line 2 10 Intake, IV Titration 155.526 87.71 375 Amount Dextrose 5%-0.45% NaCl 1, 375 000 ml @ 125 mls/hr IV . Q8H JEFF Rx#:[id number] Heparin Sod,Pork in 0.45% 155.526 87.71 NaCl 25,000 unit In 0.45 % NaCl 1 250ml.bag @ 18 UNITS/KG/HR 17.64 mls/hr IV .[id number] JEFF Rx#: [id number] Oral 240 Output: Urine 438 164 3799 Straight 500 Other: Voiding Method Indwelling Catheter Indwelling Catheter Indwelling Catheter # Bowel Movements 1 - Exam On examination patient is slightly more alert and awake. Patient states she is 50 years old and then states was 53. Patient states at present is March and the year is [birth year]. Her speech is more clear. She states she is in [place] in [place]. Patient knows her birthday. There is no pronator drift. Her pupils are round and reacting. Face is symmetric. 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 Deltoids are 4+ at least. Patient's hip flexion patient can lift her legs off the bed much better. She does not provide much resistance and dropped sit down. Her knee extension is 5 bilaterally. Hip flexion is at least 4- bilaterally.Ankles and toes are normal. - Labs CBC & Chem 7: 03/01/21 08:22 02/28/21 07:41 Labs: Abnormal Lab Results - Last 24 Hours (Table) 02/28/21 03/01/21 03/01/21 Range/Units 13:53 06:10 08:22 Lymphocytes # 0.4 L (1.0-4.8) k/uL APTT (22.0-30.0) sec POC Glucose (mg/dL) 232 H (75-99) mg/dL Procalcitonin 0.10 H (0.02-0.09) ng/mL 03/01/21 03/01/21 03/01/21 Range/Units 08:22 11:37 16:46 Lymphocytes # (1.0-4.8) k/uL APTT 120.0 H* (22.0-30.0) sec POC Glucose (mg/dL) 263 H 265 H (75-99) mg/dL Procalcitonin (0.02-0.09) ng/mL 03/01/21 Range/Units 20:39 Lymphocytes # (1.0-4.8) k/uL APTT (22.0-30.0) sec POC Glucose (mg/dL) 385 H (75-99) mg/dL Procalcitonin (0.02-0.09) ng/mL Microbiology - Last 24 Hours (Table) 02/27/21 20:10 Blood Culture - Preliminary Blood No Growth after 48 hours 02/27/21 20:10 Blood Culture - Preliminary Blood No Growth after 48 hours Assessment and Plan Assessment: * Altered mental status, possible due to toxic metabolic encephalopathy. No evidence of acute stroke on MRI. * Pneumonia, on Zosyn. * Acute PE, on heparin. * Diabetes * Hypertension * Hyperlipidemia Plan: * MRI of the brain revealed no acute infarct. Chronic microvascular ischemic change. * CTA of the chest revealed findings felt to reflect mild pulmonary embolism. Patient now on Apixaban. Dosing of Apixaban as per cardiology/IM. * EEG was performed, which revealed background slowing of moderate to severe degree, consistent with encephalopathy. No epileptiform activity was seen. * Carotid Doppler revealed mild heterogeneous plaque with no significant s tenosis. Antegrade flow in both vertebral arteries. * 2-D echo revealed normal left-ventricular size. Mild concentric LVH. EF is 60-65%. Aneurysmal interatrial septum. * Fasting lipid panel cholesterol 125, LDL 47, HDL 65 and triglycerides 65. * Hemoglobin A1c 5.3, * B12 1019, folate 20.5, TSH 1.76 normal. * Continue 325 mg daily. If cannot take by mouth, would recommend rectal aspirin. * We will continue to follow sporadically. Please call neurology if any concerns.
[2021-03-02 05:59] LABS: Glucose,Whole Blood 189 mg/dL (75-99)
[2021-03-02] MEDS: INSULIN ASPART (NovoLOG) 100 UNIT/ML VIAL SQ SCH ×4 (06:22→20:36)
[2021-03-02] MEDS: DEXTROSE 5%-0.45% NACL 1,000 ML IV SCH ×2 (06:22→09:54)
[2021-03-02] MEDS ORDERED: INSULIN ASPART (NovoLOG) 100 UNIT/ML VIAL SQ SCH (07:30)
[2021-03-02] MEDS: IPRATROPIUM-ALBUTEROL 3 ML NEB INHALATION SCH ×4 (07:47→19:37)
[2021-03-02] MEDS: PIPERACILLIN-TAZOBACTAM 3.375 GM in SODIUM CHLORIDE 0.9% 100 ML IVPB SCH ×2 (09:00→15:38)
[2021-03-02] MEDS: hydrALAZINE HCL 25 MG TAB PO SCH ×2 (09:55→15:38)
[2021-03-02] MEDS: lisinopriL 20 MG TAB PO SCH ×2 (09:55→20:34)
[2021-03-02] MEDS: APIXABAN 5 MG TAB PO SCH ×2 (09:55→20:35)
[2021-03-02 11:38] LABS: Glucose,Whole Blood 220 mg/dL (75-99)
--- NOTE | 2021-03-02 13:16 | P.PN ---
Subjective Progress Note Date: 03/02/21 Principal diagnosis: Altered mental status 65-year-old female, who was seen in the emergency department on February 27. She was brought in because of mental status changes by EMS. She apparently was found by [facility], when she did not answer her door. The patient was found to be hypoglycemic, was given dextrose, but there is no improvement in her mentation. She apparently had a recent hospitalization for seizures, and UTI. She's currently being evaluated by number of services including neurology. We are asked to see her, because a chest x-ray showed possible pneumonia, and small pulmonary emboli. Currently, the patient's on IV heparin. She apparently is going to be switched to a factor X a inhibitor, I believe Eliquis. She does not appear to be short of breath. The patient is on 2 L nasal cannula with saturations of 94%. Respiratory rate 18, heart rate 90, temperature 98.2, and blood pressure 129/61. Patient's white count is 5, hemoglobin 12.4, hematocrit 37.6, and platelet count 173,000. PTT is greater than 120. D-dimer 0.98. Sodium 135, potassium 4.5, chlorides 109, CO2 20, anion gap 6, BUN 28, creatinine 0.89. Pro-calcitonin level is 0.10. TSH is normal. Drug screen is negative. Testing for back virus is negative. Chest x-ray from February 27 shows patchy perihilar and interstitial airspace opacities which may represent edema or infection. There is also a small right-sided pleural effusion. A CT angiogram done on February 28, showed a few tiny filling defects noted within the bilateral second and third order vessels left greater than right. Also, there is bilateral airspace consolidation noted left greater than right, with small ef fusions. The patient is seen today 03/02/2021 in follow-up on the selective care unit. She is currently sitting up in bed. Awake and alert in no acute distress. More responsive today compared to yesterday. Maintaining O2 saturations in the mid 90s on room air. She's afebrile. Hemodynamically stable. Blood cultures reveal no growth. Blood glucose 220. D5 and half-normal saline at 125 an hour. She is anticoagulated with Eliquis. She remains on Zosyn, bronchodilators. Objective - Vital Signs Vital signs: Vital Signs Temp 98.0 F 03/02/21 04:00 Pulse 86 03/02/21 11:19 Resp 18 03/02/21 11:19 BP 128/60 03/02/21 04:00 Pulse Ox 95 03/02/21 04:00 Intake & Output 03/01/21 03/02/21 03/02/21 18:59 06:59 18:59 Intake Total 337.71 375 240 Output Total 350 1425 400 Balance -12.29 -1050 -160 Weight 101 kg Intake: IV 10 Invasive Line 2 10 Intake, IV Titration 87.71 375 Amount Dextrose 5%-0.45% NaCl 1, 375 000 ml @ 125 mls/hr IV . Q8H JEFF Rx#:[id number] Heparin Sod,Pork in 0.45% 87.71 NaCl 25,000 unit In 0.45 % NaCl 1 250ml.bag @ 18 UNITS/KG/HR 17.64 mls/hr IV .[id number] JEFF Rx#: [id number] Oral 240 240 Output: Urine 350 1425 400 Straight 500 Other: Voiding Method Indwelling Catheter Indwelling Catheter # Bowel Movements 1 1 - Exam GENERAL EXAM: Alert, pleasant 65-year-old female patient, on room air, comfor table in no apparent distress. HEAD: Normocephalic. EYES: Normal reaction of pupils, equal size. NOSE: Clear with pink turbinates. THROAT: No erythema or exudates. NECK: No masses, no JVD. CHEST: No chest wall deformity. LUNGS: Equal air entry with crackles in bilateral bases. CVS: S1 and S2 normal with no audible murmur, regular rhythm. ABDOMEN: No hepatosplenomegaly, normal bowel sounds, no guarding or rigidity. SPINE: No scoliosis or deformity SKIN: No rashes CENTRAL NERVOUS SYSTEM: No focal deficits, tone is normal in all 4 extremities. EXTREMITIES: There is no peripheral edema. No clubbing, no cyanosis. Peripheral pulses are intact. - Labs CBC & Chem 7: 03/01/21 08:22 02/28/21 07:41 Labs: Abnormal Lab Results - Last 24 Hours (Table) 03/01/21 03/01/21 03/02/21 Range/Units 16:46 20:39 05:57 POC Glucose (mg/dL) 265 H 385 H 189 H (75-99) mg/dL 03/02/21 Range/Units 11:36 POC Glucose (mg/dL) 220 H (75-99) mg/dL Microbiology - Last 24 Hours (Table) 02/27/21 20:10 Blood Culture - Preliminary Blood No Growth after 48 hours 02/27/21 20:10 Blood Culture - Preliminary Blood No Growth after 48 hours Assessment and Plan Assessment: 1 Mental status changes, currently being evaluated by the primary service and neurology. 2 Tiny, bilateral pulmonary emboli, transitioned to Eliquis 3 Bilateral lower lobe infiltrates, with small effusions, doubt pneumonia, given the very low pro-calcitonin level, patient currently on Zosyn. 4 History of diabetes mellitus. 5 History of hypertension. 6 History of hyperlipidemia. 7 History of urinary tract infection, September 2020. Plan: The patient was seen and evaluated by Dr. Smith She has been transitioned to Eliquis for small pulmonary emboli Remains on Zosyn though doubt pneumonia Stable from the pulmonary standpoint I, the cosigning physician, performed a history & physical examination of the patient. Lungs sounds crackles in the bilateral bases. Maintaining good O2 saturations in the 90s on room air. I discussed the assessment and plan of care with my nurse practitioner, Stephanie Crawford. I attest to the above note as dictated by her.
[2021-03-02 16:45] LABS: Glucose,Whole Blood 240 mg/dL (75-99)
--- NOTE | 2021-03-02 18:23 | P.PN ---
Subjective Progress Note Date: 03/02/21 03/02/2021: Patient was seen by Tele-Neurology. Patient is doing better even as compared to yesterday. Patient is more awake, opening eyes, conversive much more. Following commands. Speech is much more clear. Much less slurring. Offers no complaints. No seizures. 03/01/2021: Patient was seen by Tele-neurology today. Patient is doing much more better. Please refer to examination below. Patient is laying comfortably in the bed. According to report from patient's primary physician, patient is at baseline oriented 3. Patient has no family, lives independently. Patient has a friend, who is her guardian. Patient now has been diagnosed with acute PE. On anticoagulation. 02/28/2021: Patient was seen for a follow-up. Patient is improved as compared to yesterday. Patient is laying comfortably in the bed. Patient states she feels "okay". Please refer to examination below. Telemetry monitoring so far showing sinus rhythm. No A. fib. Patient is a 65-year-old female came to the hospital today at 11:38 AM by ambulance. Patient not able to provide any history. As per EMS flow sheet, it was reported that patient has assisted living with [facility]. Staff was stating that patient is altered and not responding appropriately. Patient was alert and oriented 1 area did patient was noted to be tachypneic. Unknown last known well. Patient's blood sugar was 63. D50 was administered patient shortly after became more oriented and became oriented 2. Repeat blood sugar was 270. Patient's blood pressure was 161/85, pulse rate 105, respiration 24. Vital signs on arrival blood pressure 174/104, pulse rate 109 and temperature 97.6. Patient underwent computed tomography scan of the head, which revealed age- related atrophic and chronic small vessel ischemic changes without acute intracranial process seen at this time. Chest x-ray revealed patchy perihilar and interstitial airspace opacities may represent edema or infection. EKG shows normal sinus rhythm. Carotid Doppler has been performed, which revealed mild heterogeneous plaque with no significant stenosis. Blood test shows normal CBC, PT/PTT. Sodium is normal potassium 5.2, BUN 34 creatinine 1.01. Calcium 10.9 AST is 49, ALT 50. Ammonia is normal. Troponins are mildly elevated. UA is negative. Urine drug screen negative. Islas virus negative. Patient at present is very confused, states she is 52 years of age. Please refer to examination below. She perseverates. Patient states that she lives alone has no children. She denies headache, denies any pain. She does not know who brought her to the hospital. Objective - Vital Signs Vital signs: Vital Signs Temp 99.0 F 03/02/21 15:33 Pulse 85 03/02/21 15:33 Resp 16 03/02/21 15:33 BP 121/54 03/02/21 15:33 Pulse Ox 95 03/02/21 15:33 Intake & Output 03/01/21 03/02/21 03/02/21 18:59 06:59 18:59 Intake Total 337.71 375 240 Output Total 350 1425 1400 Balance -12.29 -1050 -1160 Weight 101 kg Intake: IV 10 Invasive Line 2 10 Intake, IV Titration 87.71 375 Amount Dextrose 5%-0.45% NaCl 1, 375 000 ml @ 125 mls/hr IV . Q8H JEFF Rx#:[id number] Heparin Sod,Pork in 0.45% 87.71 NaCl 25,000 unit In 0.45 % NaCl 1 250ml.bag @ 18 UNITS/KG/HR 17.64 mls/hr IV .[id number] JEFF Rx#: [id number] Oral 240 240 Output: Urine 350 1425 1400 Straight 500 1000 Other: Voiding Method Indwelling Catheter Indwelling Catheter Indwelling Catheter # Bowel Movements 1 1 - Exam On examination patient is much more alert and awake. Patient knows that she is in [facility]. She could not tell the month although knows it is spring season and states the year is 2021. Patient knows name of the current president Mr. Hayes. Patient's strength is deltoid 4+ biceps, triceps are nor mal. Patient has mild tremors of outstretched hands. Hip flexion is 4-, hip abduction 4, hip adduction 5.ankles appears normal. - Labs CBC & Chem 7: 03/01/21 08:22 02/28/21 07:41 Labs: Abnormal Lab Results - Last 24 Hours (Table) 03/01/21 03/02/21 03/02/21 Range/Units 20:39 05:57 11:36 POC Glucose (mg/dL) 385 H 189 H 220 H (75-99) mg/dL 03/02/21 Range/Units 16:43 POC Glucose (mg/dL) 240 H (75-99) mg/dL Microbiology - Last 24 Hours (Table) 02/27/21 20:10 Blood Culture - Preliminary Blood No Growth after 48 hours 02/27/21 20:10 Blood Culture - Preliminary Blood No Growth after 48 hours Assessment and Plan Assessment: * Altered mental status, possible due to toxic metabolic encephalopathy. No evidence of acute stroke on MRI. * Pneumonia, on Zosyn. * Acute PE, on heparin. * Diabetes * Hypertension * Hyperlipidemia Plan: * Patient's encephalopathy is much improved. She is much more alert awake, conversant. * MRI of the brain revealed no acute infarct. Chronic microvascular ischemic change. * CTA of the chest revealed findings felt to reflect mild pulmonary embolism. Patient now on Apixaban. Dosing of Apixaban as per cardiology/IM. * EEG was performed, which revealed background slowing of moderate to severe degree, consistent with encephalopathy. No epileptiform activity was seen. * Carotid Doppler revealed mild heterogeneous plaque with no significant steno sis. Antegrade flow in both vertebral arteries. * 2-D echo revealed normal left-ventricular size. Mild concentric LVH. EF is 60-65%. Aneurysmal interatrial septum. * Fasting lipid panel cholesterol 125, LDL 47, HDL 65 and triglycerides 65. * Hemoglobin A1c 5.3, * B12 1019, folate 20.5, TSH 1.76 normal. * Continue 325 mg daily. If cannot take by mouth, would recommend rectal aspirin. * Dr. Joaquim Smith Will resume neurology service from the morning. * Please feel free to call neurology if any concerns.
[2021-03-02 20:15] LABS: Glucose,Whole Blood 294 mg/dL (75-99)
[2021-03-02] MEDS: ATORVASTATIN 20 MG TAB PO SCH (20:35)
[2021-03-03] MEDS: hydrALAZINE HCL 25 MG TAB PO SCH ×4 (00:48→20:30)
[2021-03-03] MEDS: PIPERACILLIN-TAZOBACTAM 3.375 GM in SODIUM CHLORIDE 0.9% 100 ML IVPB SCH ×2 (00:48→09:52)
[2021-03-03] MEDS: DEXTROSE 5%-0.45% NACL 1,000 ML IV SCH ×2 (00:49→09:55)
--- NOTE | 2021-03-03 05:31 | PN ---
PROGRESS NOTE DATE OF SERVICE: 03/02/2021 REASON FOR FOLLOWUP: Pneumonia. INTERVAL HISTORY: The patient is currently afebrile. The patient is breathing comfortably. The patient denies having any chest pain or shortness of breath. She did have a cough, no worsening. No vomiting. No abdominal pain or diarrhea. PHYSICAL EXAMINATION: Blood pressure is 118/55 with a pulse of 95. Temperature is 97.8. She is 95% on room air. General description: The patient is an elderly female lying in bed in no distress. Respiratory system: Unlabored breathing. Decreased breath sounds at bases. No wheeze. HEART: S1, S2. Regular rate and rhythm. ABDOMEN: Soft, no tenderness. LABS: No new labs have been obtained today. Culture has been negative so far. No sputum was obtained. DIAGNOSTIC IMPRESSION AND PLAN: Patient admitted to hospital with mental status changes, weakness, cough with evidence of pneumonia on the CT. Covered with Zosyn. Concern for possible aspiration etiology. Continue supportive care. MMODL / IJN: [id number] /
[2021-03-03 06:20] LABS: Glucose,Whole Blood 188 mg/dL (75-99)
[2021-03-03] MEDS: INSULIN ASPART (NovoLOG) 100 UNIT/ML VIAL SQ SCH ×4 (07:37→20:30)
--- NOTE | 2021-03-03 08:08 | XR ---
EXAMINATION TYPE: XR chest 1V portable DATE OF EXAM: 03/03/2021 CLINICAL HISTORY: Difficulty breathing and pneumonia progress study. TECHNIQUE: Single AP portable upright view of the chest is obtained. COMPARISON: Chest x-ray from [address] chest 3 days earlier. FINDINGS: Background chronic parenchymal changes with improved aeration in the left mid to basilar r egion. Persistent small to tiny right greater than left pleural effusions. No new focal airspace opac ity. Persistent cardiomegaly. Multilevel spurring in the spine redemonstrated. IMPRESSION: Improved aeration left mid to lower lung. Cardiomegaly with small to tiny right greater t marquez left pleural effusions redemonstrated. No new focal infiltrate.
[2021-03-03] MEDS: IPRATROPIUM-ALBUTEROL 3 ML NEB INHALATION SCH ×4 (08:19→19:59)
[2021-03-03] MEDS: lisinopriL 20 MG TAB PO SCH ×2 (09:52→20:30)
[2021-03-03] MEDS: APIXABAN 5 MG TAB PO SCH ×2 (09:52→20:29)
--- NOTE | 2021-03-03 12:08 | P.PN ---
Subjective Progress Note Date: 03/03/21 65-year-old female, who was seen in the emergency department on February 27. She was brought in because of mental status changes by EMS. She apparently was found by [employer] [facility], when she did not answer her door. The patient was found to be hypoglycemic, was given dextrose, but there is no improvement in her mentation. She apparently had a recent hospitalization for seizures, and UTI. She's currently being evaluated by number of services including neurology. We are asked to see her, because a chest x-ray showed possible pneumonia, and small pulmonary emboli. Currently, the patient's on IV heparin. She apparently is going to be switched to a factor X a inhibitor, I believe Eliquis. She does not appear to be short of breath. The patient is on 2 L nasal cannula with saturations of 94%. Respiratory rate 18, heart rate 90, temperature 98.2, and blood pressure 129/61. Patient's white count is 5, hemoglobin 12.4, hematocrit 37.6, and platelet count 173,000. PTT is greater than 120. D-dimer 0.98. Sodium 135, potassium 4.5, chlorides 109, CO2 20, anion gap 6, BUN 28, creatinine 0.89. Pro-calcitonin level is 0.10. TSH is normal. Drug screen is negative. Testing for back virus is negative. Chest x-ray from February 27 shows patchy perihilar and interstitial airspace opacities which may represent edema or infection. There is also a small right-sided pleural effusion. A CT angio gram done on February 28, showed a few tiny filling defects noted within the bilateral second and third order vessels left greater than right. Also, there is bilateral airspace consolidation noted left greater than right, with small effusions. The patient is seen today 03/02/2021 in follow-up on the selective care unit. She is currently sitting up in bed. Awake and alert in no acute distress. More responsive today compared to yesterday. Maintaining O2 saturations in the mid 90s on room air. She's afebrile. Hemodynamically stable. Blood cultures reveal no growth. Blood glucose 220. D5 and half-normal saline at 125 an hour. She is anticoagulated with Eliquis. She remains on Zosyn, bronchodilators. 2020 I'm seeing this patient for a follow-up. The patient is currently on room air oxygen. The patient is also on Eliquis 10 mg by mouth twice a day for pulmonary emboli noted earlier. No signs of any significant respiratory distress. Chest x-rays clear and there is no evidence of any pneumonia. Mental status is very much improved and the patient is much more alert and awake. The patient is being seen by neurology at this point in time. Meanwhile, the patient is still on empiric antibiotic coverage with IV Zosyn. Blood cultures have not shown any significant growth. She has a Damon catheter in place. Adequate urine output. The d-dimer noted was low at 0.98. The patient's Doppler lower extremity has not been done. CAT scan of the chest showed some few tiny filling defect in the secondary and the tertiary branches of the pulmonary arteries left more than right. There is also some right basilar airspace disease left greater than right. Objective - Vital Signs Vital signs: Vital Signs Temp 98.8 F 03/03/21 08:00 Pulse 80 03/03/21 11:49 Resp 18 03/03/21 11:33 BP 128/80 03/03/21 11:33 Pulse Ox 96 03/03/21 11:33 Intake & Output 03/02/21 03/03/21 03/03/21 18:59 06:59 18:59 Intake Total 250 Output Total 1400 800 Balance -1150 -800 Weight 102.5 kg Intake: IV 10 Invasive Line 3 10 Oral 240 Output: Urine 1400 800 Straight 1000 Other: Voiding Method Indwelling Catheter Indwelling Catheter Indwelling Catheter # Bowel Movements 1 1 - Exam GENERAL EXAM: Alert, pleasant 65-year-old female patient, on room air, comfortable in no apparent distress. HEAD: Normocephalic. EYES: Normal reaction of pupils, equal size. NOSE: Clear with pink turbinates. THROAT: No erythema or exudates. NECK: No masses, no JVD. CHEST: No chest wall deformity. LUNGS: Equal air entry with crackles in bilateral bases. CVS: S1 and S2 normal with no audible murmur, regular rhythm. ABDOMEN: No hepatosplenomegaly, normal bowel sounds, no guarding or rigidity. The patient has a anterior wall abdominal/umbilical hernia which is easily reducible and there is no SPINE: No scoliosis or deformity SKIN: No rashes CENTRAL NERVOUS SYSTEM: No focal deficits, tone is normal in all 4 extremities. EXTREMITIES: There is no peripheral edema. No clubbing, no cyanosis. Peripheral pulses are intact. - Labs CBC & Chem 7: 03/01/21 08:22 02/28/21 07:41 Labs: Abnormal Lab Results - Last 24 Hours (Table) 03/02/21 03/02/21 03/03/21 Range/Units 16:43 20:13 06:19 POC Glucose (mg/dL) 240 H 294 H 188 H (75-99) mg/dL Microbiology - Last 24 Hours (Table) 02/27/21 20:10 Blood Culture - Preliminary Blood No Growth after 72 hours 02/27/21 20:10 Blood Culture - Preliminary Blood No Growth after 72 hours Assessment and Plan Plan: 1 Mental status changes, currently being evaluated by the primary service and neurology. Mental status is improved and the patient is communicating and her confusion is obviously subsided., 2 Tiny, bilateral pulmonary emboli, transitioned to Eliquis, Filling defects involving the second and third branches of the pulmonary arteries and small bilateral pleural effusion and consolidation involving the lung bases. Patient is currently on Eliquis. 3 Bilateral lower lobe infiltrates, with small effusions, doubt pneumonia, given the very low pro-calcitonin level, patient currently on Zosyn. 4 History of diabetes mellitus. 5 History of hypertension. 6 History of hyperlipidemia. 7 History of urinary tract infection, September 2020. 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
[2021-03-03 12:20] LABS: Glucose,Whole Blood 272 mg/dL (75-99)
[2021-03-03 12:20] LABS: Glucose,Whole Blood 266 mg/dL (75-99)
[2021-03-03] MEDS: AMOXIC-POT CLAV 875-125MG 1 EACH TAB PO SCH ×2 (12:38→20:29)
--- NOTE | 2021-03-03 12:51 | PN ---
PROGRESS NOTE DATE OF SERVICE: 03/02/2021 CHIEF COMPLAINT: Encephalopathy. HISTORY OF PRESENT ILLNESS: This lady is about the same. She might be a little bit more alert each day, but she remains very confused. She has no focal neurologic deficits. Sugars are being left purposely high. She is being followed by PT, OT and speech therapy and will start working on discharge plan. PHYSICAL EXAMINATION: Her vital signs are normal. Color is good. Hydration is better. Chest is clear. Cardiac exam is normal. Abdomen is soft and protuberant with a hernia. Extremities are normal. IMPRESSION: 1. Encephalopathy, probably due to hypoglycemia. 2. Insulin-dependent diabetes mellitus. PLAN: Continue to work on physical therapy and look into discharge planning. MMODL / IJN: [id number] /
--- NOTE | 2021-03-03 13:20 | US ---
EXAMINATION TYPE: US venous doppler duplex LE DATE OF EXAM: 03/03/2021 1:10 PM COMPARISON: NONE CLINICAL HISTORY: rule out DVT. Difficult and limited exam due to patient body habitus and patient pa in . Pain. SIDE PERFORMED: Bilateral TECHNIQUE: The lower extremity deep venous system is examined utilizing real time linear array sonog mikey with graded compression, doppler sonography and color-flow sonography. VESSELS IMAGED: Common Femoral Vein Deep Femoral Vein Greater Saphenous Vein * Femoral Vein Popliteal Vein Small Saphenous Vein * Proximal Calf Veins (* superficial vessels) Right Leg: Negative for DVT Left Leg: Negative for DVT as visualized Grayscale, color doppler, spectral doppler imaging performed of the deep veins of the bilateral lower extremities. There is normal flow, compressibility, vascular waveforms. IMPRESSION: Suboptimal study without acute DVT. Mild subcutaneous edema distally in the left lower e xtremity.
--- NOTE | 2021-03-03 14:17 | PN ---
PROGRESS NOTE DATE OF SERVICE: 03/03/2021. CHIEF COMPLAINT: Hypoglycemic encephalopathy. HISTORY OF PRESENT ILLNESS: This lady is about the same. She might be a little bit more alert and she has no focal deficits, but she remains very confused. She is able to swallow. She is being followed by PT, OT and ST. PHYSICAL EXAMINATION: She is awake and alert but confused. Chest is clear. Cardiac exam is normal. Abdomen is soft, nontender. IMPRESSION: Encephalopathy probably secondary to hypoglycemia. PLAN: 1. Continue with PT, OT and speech therapy. 2. Work on discharge planning. 3. It looks as though she may need a guardian and this is being applied for. MMODL / IJN: [id number] /
[2021-03-03 16:53] LABS: Glucose,Whole Blood 232 mg/dL (75-99)
[2021-03-03 20:15] LABS: Glucose,Whole Blood 223 mg/dL (75-99)
[2021-03-03] MEDS: INSULIN DETEMIR (LEVEMIR) 100 UNIT/ML SYR SQ SCH (20:30)
[2021-03-03] MEDS: ATORVASTATIN 20 MG TAB PO SCH (20:30)
--- NOTE | 2021-03-04 03:58 | PN ---
PROGRESS NOTE DATE OF SERVICE: 03/03/2021 REASON FOR CONSULTATION: Pneumonia. INTERVAL HISTORY: Patient is currently afebrile. The patient is breathing comfortably. Patient denies having any chest pain or shortness of breath. Occasional cough. No abdominal pain. No diarrhea. PHYSICAL EXAMINATION: Blood pressure 120/61 with a pulse of 86, temperature 97.7. She is 94% on room air. General description is an elderly female lying in bed in no distress. Respiratory system: Unlabored breathing, clear to auscultation anteriorly. Heart S1, S2. Regular rate and rhythm. ABDOMEN: Soft, no tenderness. LABS: Blood culture negative. No new labs have been obtained today. DIAGNOSTIC IMPRESSION AND PLAN: Patient with in-hospital mental status changes with evidence of pulmonary embolism as well as pneumonia. Antibiotic has been adjusted to Augmentin to finish course of therapy and continue supportive care. MMODL / IJN: [id number] /
[2021-03-04 06:09] LABS: Glucose,Whole Blood 132 mg/dL (75-99)
[2021-03-04] MEDS: INSULIN ASPART (NovoLOG) 100 UNIT/ML VIAL SQ SCH ×4 (06:30→20:29)
[2021-03-04] MEDS: IPRATROPIUM-ALBUTEROL 3 ML NEB INHALATION SCH ×5 (07:54→22:05)
[2021-03-04] MEDS: lisinopriL 20 MG TAB PO SCH ×2 (09:02→20:29)
[2021-03-04] MEDS: AMOXIC-POT CLAV 875-125MG 1 EACH TAB PO SCH ×2 (09:02→20:28)
[2021-03-04] MEDS: hydrALAZINE HCL 25 MG TAB PO SCH ×3 (09:03→20:29)
[2021-03-04] MEDS: APIXABAN 5 MG TAB PO SCH ×2 (09:03→20:28)
--- NOTE | 2021-03-04 11:35 | P.PN ---
Subjective Progress Note Date: 03/04/21 65-year-old female, who was seen in the emergency department on February 27. She was brought in because of mental status changes by EMS. She apparently was found by [facility] [facility], when she did not answer her door. The patient was found to be hypoglycemic, was given dextrose, but there is no improvement in her mentation. She apparently had a recent hospitalization for seizures, and UTI. She's currently being evaluated by number of services including neurology. We are asked to see her, because a chest x-ray showed possible pneumonia, and small pulmonary emboli. Currently, the patient's on IV heparin. She apparently is going to be switched to a factor X a inhibitor, I believe Eliquis. She does not appear to be short of breath. The patient is on 2 L nasal cannula with saturations of 94%. Respiratory rate 18, heart rate 90, temperature 98.2, and blood pressure 129/61. Patient's white count is 5, hemoglobin 12.4, hematocrit 37.6, and platelet count 173,000. PTT is greater than 120. D-dimer 0.98. Sodium 135, potassium 4.5, chlorides 109, CO2 20, anion gap 6, BUN 28, creatinine 0.89. Pro-calcitonin level is 0.10. TSH is normal. Drug screen is negative. Testing for back virus is negative. Chest x-ray from February 27 shows patchy perihilar and interstitial airspace opacities which may represent edema or infection. There is also a small right-sided pleural effusion. A CT angio gram done on February 28, showed a few tiny filling defects noted within the bilateral second and third order vessels left greater than right. Also, there is bilateral airspace consolidation noted left greater than right, with small effusions. The patient is seen today 03/02/2021 in follow-up on the selective care unit. She is currently sitting up in bed. Awake and alert in no acute distress. More responsive today compared to yesterday. Maintaining O2 saturations in the mid 90s on room air. She's afebrile. Hemodynamically stable. Blood cultures reveal no growth. Blood glucose 220. D5 and half-normal saline at 125 an hour. She is anticoagulated with Eliquis. She remains on Zosyn, bronchodilators. 2020 I'm seeing this patient for a follow-up. The patient is currently on room air oxygen. The patient is also on Eliquis 10 mg by mouth twice a day for pulmonary emboli noted earlier. No signs of any significant respiratory distress. Chest x-rays clear and there is no evidence of any pneumonia. Mental status is very much improved and the patient is much more alert and awake. The patient is being seen by neurology at this point in time. Meanwhile, the patient is still on empiric antibiotic coverage with IV Zosyn. Blood cultures have not shown any significant growth. She has a Damon catheter in place. Adequate urine output. The d-dimer noted was low at 0.98. The patient's Doppler lower extremity has not been done. CAT scan of the chest showed some few tiny filling defect in the secondary and the tertiary branches of the pulmonary arteries left more than right. There is also some right basilar airspace disease left greater than right. 5 2020, I'm seeing this patient for a follow-up. The patient's status was altered and the patient is gradually improving. She is also diagnosed having bilateral pulmonary emboli with filling defects that were tiny involving the secondary and tertiary branches and she was noted on Eliquis. No evidence of any acute bleeding. She is tolerating the antibiotic regulation well. Labs done today are still pending. Sugar is at 132. She is currently on room air oxygen and her pulse ox was around 90-91%. Accordingly she was placed again on 2 L of oxygen by nasal cannula. Damon catheter is still in place. D-dimer is low. Doppler of the lower extremity was also done and was negative. She is communicating. She is aware of the place and the Time and date. Objective - Vital Signs Vital signs: Vital Signs Temp 98.8 F 03/04/21 08:00 Pulse 83 03/04/21 08:05 Resp 20 03/04/21 08:00 BP 126/58 03/04/21 08:00 Pulse Ox 91 L 03/04/21 08:00 Intake & Output 03/03/21 03/04/21 03/04/21 18:59 06:59 18:59 Intake Total 725 250 236 Output Total 650 1050 200 Balance 75 -800 36 Weight 99.5 kg Intake: IV 10 0.9 10 Intake, IV Titration 725 Amount Dextrose 5%-0.45% NaCl 1, 625 000 ml @ 125 mls/hr IV . Q8H JEFF Rx#:[id number] Piperacillin-Tazobactam 3 100 .375 gm In Sodium Chloride 0.9% 100 ml @ 25 mls/hr IVPB Q8HR JEFF Rx# :[id number] Oral 0 240 236 Output: Urine 650 1050 200 Straight 200 Other: Voiding Method Indwelling Catheter Indwelling Catheter Indwelling Catheter # Bowel Movements 1 - Exam GENERAL EXAM: Alert, pleasant 65-year-old female patient, on room air, comfortable in no apparent distress. HEAD: Normocephalic. EYES: Normal reaction of pupils, equal size. NOSE: Clear with pink turbinates. THROAT: No erythema or exudates. NECK: No masses, no JVD. CHEST: No chest wall deformity. LUNGS: Equal air entry with crackles in bilateral bases. CVS: S1 and S2 normal with no audible murmur, regular rhythm. ABDOMEN: No hepatosplenomegaly, normal bowel sounds, no guarding or rigidity. The patient has a anterior wall abdominal/umbilical hernia which is easily reducible and there is no SPINE: No scoliosis or deformity SKIN: No rashes CENTRAL NERVOUS SYSTEM: No focal deficits, tone is normal in all 4 extremities. EXTREMITIES: There is no peripheral edema. No clubbing, no cyanosis. Peripheral pulses are intact. - Labs CBC & Chem 7: 03/01/21 08:22 02/28/21 07:41 Labs: Abnormal Lab Results - Last 24 Hours (Table) 03/03/21 03/03/21 03/03/21 Range/Units 12:17 12:18 16:51 POC Glucose (mg/dL) 272 H 266 H 232 H (75-99) mg/dL 03/03/21 03/04/21 Range/Units 20:13 06:07 POC Glucose (mg/dL) 223 H 132 H (75-99) mg/dL Microbiology - Last 24 Hours (Table) 02/27/21 20:10 Blood Culture - Preliminary Blood No Growth after 96 hours 02/27/21 20:10 Blood Culture - Preliminary Blood No Growth after 96 hours Assessment and Plan Plan: 1 Mental status changes, currently being evaluated by the primary service and neurology. Mental status is improved and the patient is communicating and her confusion is obviously subsided., Mental status improved and the patient seems to be quite appropriate at this point in time without having any focal neurological deficit. 2 Tiny, bilateral pulmonary emboli, transitioned to Eliquis, Filling defects involving the second and third branches of the pulmonary arteries and small bilateral pleural effusion and consolidation involving the lung bases. Patient is currently on Eliquis. 3 Bilateral lower lobe infiltrates, with small effusions, doubt pneumonia, given the very low pro-calcitonin level, patient currently on Zosyn. 4 History of diabetes mellitus. 5 History of hypertension. 6 History of hyperlipidemia. 7 History of urinary tract infection, September 2020. 8 sacral decubitus ulcer that was present prior to her being hospitalized, could be related to prolonged immobility Plan: Eliquis regarding the pulmonary embolism The course of Augmentin , pro-calcitonin level was low Room air oxygen Monitor mental status, currently in stable Doppler of the lower extremities done yesterday and the patient is negative for DVT Patient is going to have a guardianship hearing on 03/07/2021. Discharge planning is in progress. Stable from the pulmonary standpoint
[2021-03-04 12:09] LABS: Glucose,Whole Blood 223 mg/dL (75-99)
--- NOTE | 2021-03-04 12:09 | PN ---
PROGRESS NOTE DATE OF SERVICE: 03/04/2021 REASON FOR FOLLOWUP: Pneumonia. INTERVAL HISTORY: The patient is currently afebrile. Patient is breathing comfortably. Patient denies having any chest pain or shortness of breath. Occasional cough. Not bringing up any sputum. No abdominal pain, no diarrhea. PHYSICAL EXAMINATION: Blood pressure 126/58 with a pulse of 96, temperature 98.8. She is 91% on room air. General description is an elderly female lying in bed in no distress. RESPIRATORY SYSTEM: Unlabored breathing, clear to auscultation anteriorly. HEART: S1, S2. Regular rate and rhythm. ABDOMEN: Soft, no tenderness. LABS: No new labs have been obtained today. Blood culture has been negative. DIAGNOSTIC IMPRESSION AND PLAN: Patient admitted to the hospital with shortness of breath, cough and fever. There is evidence of pulmonary embolism as well as pneumonia. Currently on oral Augmentin continue for about week to finish course of therapy. Continue supportive care. MMODL / IJN: [id number] /
[2021-03-04 16:34] LABS: Glucose,Whole Blood 274 mg/dL (75-99)
--- NOTE | 2021-03-04 17:49 | PN ---
PROGRESS NOTE DATE OF SERVICE: 03/04/2021 CHIEF COMPLAINT: Encephalopathy. HISTORY OF PRESENT ILLNESS: This lady is about the same. She awakens, but remains confused. PHYSICAL EXAMINATION: Vital signs are normal. The chest is clear. Cardiac exam is normal. Abdomen is soft, nontender. IMPRESSION: Encephalopathy, probably secondary to hypoglycemia. PLAN: Continue with physical therapy, speech therapy and occupational therapy and work on a discharge plan. MMODL / IJN: [id number] /
[2021-03-04 20:21] LABS: Glucose,Whole Blood 198 mg/dL (75-99)
[2021-03-04] MEDS: INSULIN DETEMIR (LEVEMIR) 100 UNIT/ML SYR SQ SCH (20:29)
[2021-03-04] MEDS: ATORVASTATIN 20 MG TAB PO SCH (20:29)
[2021-03-05 06:01] LABS: Glucose,Whole Blood 137 mg/dL (75-99)
[2021-03-05] MEDS: INSULIN ASPART (NovoLOG) 100 UNIT/ML VIAL SQ SCH ×4 (06:23→21:00)
[2021-03-05] MEDS: IPRATROPIUM-ALBUTEROL 3 ML NEB INHALATION SCH ×4 (08:20→22:07)
[2021-03-05] MEDS: APIXABAN 5 MG TAB PO SCH ×2 (09:15→21:00)
[2021-03-05] MEDS: lisinopriL 20 MG TAB PO SCH ×2 (09:15→21:00)
[2021-03-05] MEDS: hydrALAZINE HCL 25 MG TAB PO SCH ×3 (09:16→21:00)
[2021-03-05] MEDS: AMOXIC-POT CLAV 875-125MG 1 EACH TAB PO SCH ×2 (09:18→21:00)
[2021-03-05 11:47] LABS: Glucose,Whole Blood 243 mg/dL (75-99)
[2021-03-05 13:24] VITALS: BMI 37.8
--- NOTE | 2021-03-05 14:35 | P.PN ---
Subjective Progress Note Date: 03/05/21 65-year-old female, who was seen in the emergency department on February 27. She was brought in because of mental status changes by EMS. She apparently was found by [facility], when she did not answer her door. The patient was found to be hypoglycemic, was given dextrose, but there is no improvement in her mentation. She apparently had a recent hospitalization for seizures, and UTI. She's currently being evaluated by number of services including neurology. We are asked to see her, because a chest x-ray showed possible pneumonia, and small pulmonary emboli. Currently, the patient's on IV heparin. She apparently is going to be switched to a factor X a inhibitor, I believe Eliquis. She does not appear to be short of breath. The patient is on 2 L nasal cannula with saturations of 94%. Respiratory rate 18, heart rate 90, temperature 98.2, and blood pressure 129/61. Patient's white count is 5, hemoglobin 12.4, hematocrit 37.6, and platelet count 173,000. PTT is greater than 120. D-dimer 0.98. Sodium 135, potassium 4.5, chlorides 109, CO2 20, anion gap 6, BUN 28, creatinine 0.89. Pro-calcitonin level is 0.10. TSH is normal. Drug screen is negative. Testing for back virus is negative. Chest x-ray from February 27 shows patchy perihilar and interstitial airspace opacities which may represent edema or infection. There is also a small right-sided pleural effusion. A CT angio gram done on February 28, showed a few tiny filling defects noted within the bilateral second and third order vessels left greater than right. Also, there is bilateral airspace consolidation noted left greater than right, with small effusions. The patient is seen today 03/02/2021 in follow-up on the selective care unit. She is currently sitting up in bed. Awake and alert in no acute distress. More responsive today compared to yesterday. Maintaining O2 saturations in the mid 90s on room air. She's afebrile. Hemodynamically stable. Blood cultures reveal no growth. Blood glucose 220. D5 and half-normal saline at 125 an hour. She is anticoagulated with Eliquis. She remains on Zosyn, bronchodilators. 2020 I'm seeing this patient for a follow-up. The patient is currently on room air oxygen. The patient is also on Eliquis 10 mg by mouth twice a day for pulmonary emboli noted earlier. No signs of any significant respiratory distress. Chest x-rays clear and there is no evidence of any pneumonia. Mental status is very much improved and the patient is much more alert and awake. The patient is being seen by neurology at this point in time. Meanwhile, the patient is still on empiric antibiotic coverage with IV Zosyn. Blood cultures have not shown any significant growth. She has a Damon catheter in place. Adequate urine output. The d-dimer noted was low at 0.98. The patient's Doppler lower extremity has not been done. CAT scan of the chest showed some few tiny filling defect in the secondary and the tertiary branches of the pulmonary arteries left more than right. There is also some right basilar airspace disease left greater than right. 5 2020, I'm seeing this patient for a follow-up. The patient's status was altered and the patient is gradually improving. She is also diagnosed having bilateral pulmonary emboli with filling defects that were tiny involving the secondary and tertiary branches and she was noted on Eliquis. No evidence of any acute bleeding. She is tolerating the antibiotic regulation well. Labs done today are still pending. Sugar is at 132. She is currently on room air oxygen and her pulse ox was around 90-91%. Accordingly she was placed again on 2 L of oxygen by nasal cannula. Damon catheter is still in place. D-dimer is low. Doppler of the lower extremity was also done and was negative. She is communicating. She is aware of the place and the Time and date. on 03/05/2021The patient has no specific complaints. The patient's is on room air oxygen. No signs of any respiratory distress. The patient's current regimen includes Eliquis 10 mg by mouth twice a day. We also switched her to follow a total of 7 days course of antibiotics utilizing Augmentin. The pro calcitonin on level was low. A guardianship is being established and a heating is also in progress. She is communicating. No other significant events overnight. Doppler of the lower extremities have been negative. I sent her Objective - Vital Signs Vital signs: Vital Signs Temp 98.2 F 03/05/21 08:00 Pulse 76 03/05/21 11:58 Resp 18 03/05/21 08:00 BP 168/78 03/05/21 08:00 Pulse Ox 97 03/05/21 08:00 Intake & Output 03/04/21 03/05/21 03/05/21 18:59 06:59 18:59 Intake Total 336 10 80 Output Total 1400 1250 500 Balance -1064 -1240 -420 Weight 100 kg 100 kg Intake: IV 10 0.9 10 Oral 336 80 Output: Urine 1400 1250 500 Straight 600 200 500 Other: Voiding Method Indwelling Catheter Indwelling Catheter Indwelling Catheter # Bowel Movements 2 - Exam GENERAL EXAM: Alert, pleasant 65-year-old female patient, on room air, comfortable in no apparent distress. HEAD: Normocephalic. EYES: Normal reaction of pupils, equal size. NOSE: Clear with pink turbinates. THROAT: No erythema or exudates. NECK: No masses, no JVD. CHEST: No chest wall deformity. LUNGS: Equal air entry with crackles in bilateral bases. CVS: S1 and S2 normal with no audible murmur, regular rhythm. ABDOMEN: No hepatosplenomegaly, normal bowel sounds, no guarding or rigidity. The patient has a anterior wall abdominal/umbilical hernia which is easily reducible and there is no SPINE: No scoliosis or deformity SKIN: No rashes CENTRAL NERVOUS SYSTEM: No focal deficits, tone is normal in all 4 extremities. EXTREMITIES: There is no peripheral edema. No clubbing, no cyanosis. Peripheral pulses are intact. - Labs CBC & Chem 7: 03/01/21 08:22 02/28/21 07:41 Labs: Abnormal Lab Results - Last 24 Hours (Table) 03/04/21 03/04/21 03/05/21 Range/Units 16:32 20:20 05:59 POC Glucose (mg/dL) 274 H 198 H 137 H (75-99) mg/dL 03/05/21 Range/Units 11:46 POC Glucose (mg/dL) 243 H (75-99) mg/dL Microbiology - Last 24 Hours (Table) 02/27/21 20:10 Blood Culture - Preliminary Blood No Growth after 120 hours 02/27/21 20:10 Blood Culture - Preliminary Blood No Growth after 120 hours Assessment and Plan Plan: 1 Mental status changes, recovered and she is communicating 2 Tiny, bilateral pulmonary emboli, transitioned to Eliquis, Filling defects involving the second and third branches of the pulmonary arteries and small bilateral pleural effusion and consolidation involving the lung bases. Patient is currently on Eliquis. 3 Bilateral lower lobe infiltrates, with small effusions, doubt pneumonia, given the very low pro-calcitonin level, patient currently on Zosyn. 4 History of diabetes mellitus. 5 History of hypertension. 6 History of hyperlipidemia. 7 History of urinary tract infection, September 2020. 8 sacral decubitus ulcer that was present prior to her being hospitalized, could be related to prolonged immobility Plan: Eliquis regarding the pulmonary embolism The course of Augmentin , pro-calcitonin level was low Room air oxygen Monitor mental status, currently in stable Doppler of the lower extremities done yesterday and the patient is negative for DVT Patient is going to have a guardianship hearing on 03/07/2021. Discharge planning is in progress. Stable from the pulmonary standpoint and pulmonary services will sign off
--- NOTE | 2021-03-05 16:04 | PN ---
PROGRESS NOTE DATE OF SERVICE: 03/05/2021 REASON FOR FOLLOWUP: Pneumonia. INTERVAL HISTORY: The patient is currently afebrile. The patient is breathing comfortable. The patient denies having any chest pain, shortness of breath or cough. No nausea, no vomiting. No abdominal pain or diarrhea. PHYSICAL EXAMINATION: Blood pressure is 133/61 with a pulse of 88, temperature 98. She is 96% on room air. General description is an elderly female lying in bed in no distress. RESPIRATORY SYSTEM: Unlabored breathing, clear to auscultation anteriorly. HEART: S1, S2. Regular rate and rhythm. ABDOMEN: Soft, no tenderness. LABS: No new labs have been obtained today. DIAGNOSTIC IMPRESSION AND PLAN: Patient admitted to hospital with shortness of breath and mental status changes. Initially she did have evidence of pulmonary embolism and component of possible pneumonia. Overall improvement on Zosyn. Currently on Augmentin to finish for a short course and monitor clinical course. Continue supportive care. MMODL / IJN: [id number] /
[2021-03-05 16:58] LABS: Glucose,Whole Blood 206 mg/dL (75-99)
[2021-03-05 20:16] LABS: Glucose,Whole Blood 334 mg/dL (75-99)
[2021-03-05] MEDS ORDERED: INSULIN DETEMIR (LEVEMIR) 100 UNIT/ML SYR SQ SCH (21:00)
[2021-03-05] MEDS: ATORVASTATIN 20 MG TAB PO SCH (21:00)
[2021-03-06 06:16] LABS: Glucose,Whole Blood 183 mg/dL (75-99)
[2021-03-06] MEDS: INSULIN ASPART (NovoLOG) 100 UNIT/ML VIAL SQ SCH ×4 (06:23→20:23)
[2021-03-06] MEDS: IPRATROPIUM-ALBUTEROL 3 ML NEB INHALATION SCH ×4 (08:45→20:36)
[2021-03-06] MEDS: lisinopriL 20 MG TAB PO SCH ×2 (09:09→20:22)
[2021-03-06] MEDS: hydrALAZINE HCL 25 MG TAB PO SCH ×3 (09:09→20:23)
[2021-03-06] MEDS: APIXABAN 5 MG TAB PO SCH ×2 (09:09→20:22)
[2021-03-06] MEDS: AMOXIC-POT CLAV 875-125MG 1 EACH TAB PO SCH ×2 (09:09→20:22)
--- NOTE | 2021-03-06 11:33 | CDI ---
Documentation Clarification Form Date: 03/06/2021 11:17:59 AM From: Rocio Ferreira CCS, CCDS Admit Date: 02/27/2021 02:12:00 PM Patient Name: Henna Aldridge Visit Number: [id number] Discharge Date: ATTENTION: The Clinical Documentation Specialists (CDI) and [facility] Coding Staff appreciate your assistance in clarifying documentation. Please respond to the clarification below the line at the bottom and electronically sign. The CDI & [facility] Coding staff will review the response and follow-up if needed. Please note: Queries are made part of the Legal Health Record. If you have any questions, please contact the author of this message via ITS. Dr. Luis Velásquez: Conflicting documentation has been found in the medical record regarding the diagnosis of Pneumonia. As attending physician, please provide clarification. Per the Neurology Progress Note of 02/28: Pneumonia on Zosyn. Per the Pulmonary Consult of 03/01 and subsequent Progress Notes: Bilateral lower lobe infiltrates, with small effusions, doubt pneumonia, given the very low pro- calcitonin level, patient currently on Zosyn. I highly doubt pneumonia as an etiology at this time, given her lack of pulmonary complaints, such as cough, phlegm production, and fever, and the fact that her pro-calcitonin level is so low. Per the Infectious Disease Progress Note of 03/01 and subsequent Progress Notes: Possible Pneumonia. History/Risk Factors per the 02/27 ED note History: DM, Hypertension and recent admit for Seizures, UTI & Hyperglycemia. Clinical Indicators: Presented to the ED on 02/27 via EMS with Altered mental status & Hypoglycemia, patient was found on her floor by [facility] staff. ED Clinical Impression: Hypoglycemia, Altered mental status. 02/27 VS: T 97.6, P 109, R 18, BP 174/104, PO 98 2Lnc, BMI: 36.9 02/27 LAB: WBC 5.8, Neut 4.7, Lymph 0.6, K 5.2, Cl 111, D Dimer 0.98, BUN 34, GFR 58, Glucose 153, Calcium 10.9, AST 49, ALT 50, Alk Phos 132, Troponin 0.046, 0.046, 0.050; BNP 1580, Total protein 6.1, Albumin 3.4, Vit B12 1019.0. 02/28 Procalcitonin 0.10 02/27 CXR: Patchy perihilar and interstitial airspace opacities may represent edema or infection. Small right pleural effusion. Treatment 02/27: IV Dextrose/Na Cl 1,000 mls @ 100 mls/hr q10H, INH Duoneb megha 02/28: po Apresoline, Heparin Drip, IV Zosyn As the Attending Physician of Record, Please clarify the following diagnosis: [ ] Pneumonia, Present on Admission [ ] Pneumonia, Not Present on Admission [ ] Pneumonia Ruled Out [ ] Other (please specify) [ ] Unable to determine (Template Last Revised: December 2020) MTDD
[2021-03-06 12:21] LABS: Glucose,Whole Blood 221 mg/dL (75-99)
[2021-03-06 17:14] LABS: Glucose,Whole Blood 249 mg/dL (75-99)
--- NOTE | 2021-03-06 17:35 | PN ---
PROGRESS NOTE DATE OF SERVICE: 03/05/2021 CHIEF COMPLAINT: Mental status changes and encephalopathy. HISTORY OF PRESENT ILLNESS: This lady is about the same. She can be awakened and aroused, but she is not appropriate. She has no lateralizing or focal findings. Speech seems to be normal. It is likely this is related to hypoglycemia. Left lower lobe pneumonitis is improving. We are working on discharge planning, and a guardian is to be assigned. PHYSICAL EXAMINATION: Chest is clear. Cardiac exam is normal. The abdomen is soft and nontender. IMPRESSION: 1. Encephalopathy. 2. Insulin-dependent diabetes mellitus. 3. Left lower lobe pneumonia. 4. Pulmonary embolism. PLAN: Continue with current program and await guardianship and then placement. MMODL / IJN: [id number] /
--- NOTE | 2021-03-06 17:44 | PN ---
PROGRESS NOTE DATE OF SERVICE: 03/06/2021 CHIEF COMPLAINT: Encephalopathy. HISTORY OF PRESENT ILLNESS: This lady is about the same. Her court hearing is tomorrow for guardianship. She has developed an irritative rash on the back of the trunk and buttocks. Sugars are improved. PHYSICAL EXAMINATION: She is awake and alert, but confused. Chest is clear. Cardiac exam is normal. The abdomen is soft and nontender. She has a maculopapular rash on the back of the trunk and buttocks. IMPRESSION: 1. Contact dermatitis of the back. 2. Encephalopathy. 3. Left lower lobe pneumonitis. 4. Doubt pulmonary embolism. PLAN: Continue with current management and apply hydrocortisone cream to the back 4 times a day. Wednesday is the court date for guardianship and then placement. MMODL / IJN: [id number] /
--- NOTE | 2021-03-06 17:49 | XR ---
EXAMINATION: XR chest 1V portable DATE AND TIME: 03/06/2021 5:46 PM CLINICAL INDICATION: PHH; pnuemonitis TECHNIQUE: AP portable upright COMPARISON: 03/03/2021 FINDINGS: The lungs are clear. The pleural spaces are negative. The cardiac silhouette is not enlarged. The skeletal structures and soft tissues are negative for acute findings. IMPRESSION: NO ACUTE PROCESS.
[2021-03-06 17:51] LABS: Basophils % (A) 0 %; Eosinophils # (A) 0.1 k/uL (0-0.7); Eosinophils % (A) 2 %; HCT 35.3 % (34.0-46.0); HGB 11.6 gm/dL (11.4-16.0); Lymphocytes # (A) 0.5 k/uL (1.0-4.8); Lymphocytes % (A) 8 %; MCH 30.7 pg (25.0-35.0); MCHC 32.9 g/dL (31.0-37.0); MCV 93.3 fL (80.0-100.0); Mean Platelet Volume 7.3; Monocytes # (A) 0.3 k/uL (0-1.0); Monocytes % (A) 5 %; Neutrophils # (A) 5.3 k/uL (1.3-7.7); Neutrophils % (A) 83 %; Platelet Count 211 k/uL (150-450); RBC 3.78 m/uL (3.80-5.40); RDW 14.3 % (11.5-15.5); WBC 6.4 k/uL (3.8-10.6)
[2021-03-06 18:00] LABS: Albumin 2.9 g/dL (3.5-5.0); Calcium 10.1 mg/dL (8.4-10.2); Potassium 4.4 mmol/L (3.5-5.1); Total Bilirubin 0.3 mg/dL (0.2-1.3); Total Protein 5.4 g/dL (6.3-8.2)
[2021-03-06] MEDS: TRIAMCINOLONE 0.1% CREAM 80 GM TUBE TOPICAL SCH ×2 (18:01→20:23)
[2021-03-06 20:15] LABS: Glucose,Whole Blood 187 mg/dL (75-99)
[2021-03-06] MEDS: ATORVASTATIN 20 MG TAB PO SCH (20:23)
[2021-03-06] MEDS ORDERED: INSULIN DETEMIR (LEVEMIR) 100 UNIT/ML SYR SQ SCH (21:00)
--- NOTE | 2021-03-07 04:05 | PN ---
PROGRESS NOTE DATE OF SERVICE: 03/06/2021 REASON FOR FOLLOWUP: Pneumonia. INTERVAL HISTORY: The patient is afebrile. The patient is breathing comfortably on room air. The patient denies having any chest pain. She did have a cough, not bringing up any sputum. No abdominal pain. No diarrhea. PHYSICAL EXAMINATION: Blood pressure 146/82 with a pulse of 74, temperature 98.2. She is 97% on room air. General description: The patient is an elderly female lying in bed in no distress. Respiratory system: Unlabored breathing and is clear to auscultation anteriorly. Heart S1, S2. Regular rate. ABDOMEN: Soft, no tenderness. EXTREMITIES: No edema of the feet. LABS: Hemoglobin 11.1, white count 6.4, BUN of 39, creatinine is 1.10. DIAGNOSTIC IMPRESSION AND PLAN: Patient admitted to the hospital with mental status changes, multifactorial with a component of pneumonia. The patient on oral Augmentin for another week to finish a course of therapy and continue supportive care. MMODL / IJN: [id number] /
[2021-03-07 07:43] LABS: Glucose,Whole Blood 139 mg/dL (75-99)
[2021-03-07] MEDS: hydrALAZINE HCL 25 MG TAB PO SCH ×2 (07:52→15:55)
[2021-03-07] MEDS: INSULIN ASPART (NovoLOG) 100 UNIT/ML VIAL SQ SCH ×2 (07:52→13:20)
[2021-03-07] MEDS: lisinopriL 20 MG TAB PO SCH (08:05)
[2021-03-07] MEDS: TRIAMCINOLONE 0.1% CREAM 80 GM TUBE TOPICAL SCH ×2 (08:06→13:21)
[2021-03-07] MEDS: APIXABAN 5 MG TAB PO SCH (08:06)
[2021-03-07] MEDS: AMOXIC-POT CLAV 875-125MG 1 EACH TAB PO SCH (08:08)
[2021-03-07] MEDS: IPRATROPIUM-ALBUTEROL 3 ML NEB INHALATION SCH ×4 (08:20→19:36)
[2021-03-07 11:24] LABS: Glucose,Whole Blood 221 mg/dL (75-99)
--- NOTE | 2021-03-07 11:49 | PN ---
PROGRESS NOTE DATE OF SERVICE: 03/07/2021 CHIEF COMPLAINT: Encephalopathy. HISTORY OF PRESENT ILLNESS: This lady is fairly stable. Guardianship has been obtained and we will be working on [facility] placement. PHYSICAL EXAMINATION: Chest is clear. Cardiac exam is normal. The abdomen is protuberant and large umbilical hernia. IMPRESSION: 1. Encephalopathy. 2. Type 2 noninsulin dependent diabetes mellitus. 3. Umbilical hernia. PLAN: Discharge placement. MMODL / IJN: [id number] /
--- NOTE | 2021-03-07 12:01 | MISC ---
MISCELLANOUS REPORT Pneumonitis present on admission. MMODL / IJN: [id number] /
[2021-03-07 12:48] VITALS: BP 146/86; RESP 17; TEMP 98.2
--- NOTE | 2021-03-07 13:22 | DS ---
DISCHARGE SUMMARY ADDENDUM: I just dictated discharge summary of Henna Aldridge and at the beginning of the report, I forgot to anette it as priority. This needs to be taken care of so she can go to the skilled nursing today. MMODL / IJN: [id number] /
--- NOTE | 2021-03-07 13:25 | DS ---
DISCHARGE SUMMARY DATE OF SERVICE: 03/07/2021. CHIEF COMPLAINT: Mental status changes and hypoglycemia. HISTORY OF PRESENT ILLNESS AND PHYSICAL EXAMINATION: Details of this lady's history and physical can be found in the initial workup. COURSE IN THE HOSPITAL: After admission, she was placed on bedrest and started on intravenous fluids and intravenous glucose infusions. She became more awake and alert but she never regained full normal cognitive function for her. She had no seizure. She had no focal neurologic deficits. Initially, it was felt that she may have a had a pulmonary embolism, but this was not felt to be the case. She did have a minimal left lower lobe pneumonitis. She was seen by Neurology. Because she did not regain full cognitive function, it was felt that she should go into a rehab facility for a period of time. She lives alone and there is no one to help her with ADLs at home. She will go to [facility]. FINAL DIAGNOSES: 1. Metabolic encephalopathy secondary to hypoglycemia. 2. Insulin-dependent diabetes mellitus. 3. Umbilical hernia. 4. Left lower lobe pneumonitis. OPERATIONS: None. CONSULTATIONS: Neurology. She is improved. MMODL / IJN: [id number] /
[2021-03-07 15:50] VITALS: PULSE 76
--- NOTE | 2021-03-07 19:51 | PN ---
PROGRESS NOTE DATE OF SERVICE: 03/07/2021 REASON FOR FOLLOWUP: Pneumonia. INTERVAL HISTORY: The patient is currently afebrile. The patient is breathing comfortably on room air. The patient denies having any chest pain or shortness of breath. Occasional cough. No abdominal pain or diarrhea. PHYSICAL EXAMINATION: Blood pressure 146/86, pulse of 82, temperature 98.2. She is 94% on room air. General description is an elderly female lying in bed in no distress. RESPIRATORY SYSTEM: Unlabored breathing with decreased breath sounds at the base. No wheeze. HEART: S1, S2. Regular rate and rhythm. ABDOMEN: Soft. No tenderness. LABS: Hemoglobin is 11.6, white count 6.4. BUN of 39, creatinine 1.10. Blood culture has been negative. DIAGNOSTIC IMPRESSION AND PLAN: Patient with pneumonia. Overall improvement on Zosyn followed by oral Augmentin to continue for about a week to finish a course of therapy and close outpatient followup. MMODL / IJN: [id number] /
== END 2021-03-07 18:00 | DRG 637 ==
LOC: EC 11:38 → 3SCARD 14:12 → EEVIPCON 14:12 → 3SCARD 15:59 → 5NMEDONC 03-06 21:34
PROVIDERS: ADMIT Family Medicine; ATTEND Family Medicine
DX: E11.649 Type 2 diabetes mellitus with hypoglycemia without coma (principal); J18.9 Pneumonia, unspecified organism; I26.99 Other pulmonary embolism without acute cor pulmonale; G93.41 Metabolic encephalopathy; J90 Pleural effusion, not elsewhere classified; G92 Toxic encephalopathy; R56.9 Unspecified convulsions; Z79.4 Long term (current) use of insulin; Z20.822 Contact with and (suspected) exposure to COVID-19; R77.8 Other specified abnormalities of plasma proteins; I08.1 Rheumatic disorders of both mitral and tricuspid valves; K42.9 Umbilical hernia without obstruction or gangrene; I10 Essential (primary) hypertension; E78.5 Hyperlipidemia, unspecified; Z79.899 Other long term (current) drug therapy; Z79.2 Long term (current) use of antibiotics; Z79.01 Long term (current) use of anticoagulants; Z87.440 Personal history of urinary (tract) infections; Z88.8 Allergy status to other drugs, medicaments and biological substances; Z88.0 Allergy status to penicillin; Z88.2 Allergy status to sulfonamides; L25.9 Unspecified contact dermatitis, unspecified cause
CPT/HCPCS: 36415; 70450; 70551; 71045; 71275; 74177; 80053; 80061; 80306; 81001; 82140; 82607; 82746; 83036; 83605; 83615; 83880; 84145; 84443; 84484; 85025; 85379; 85610; 85730; 86140; 87040; 87635; 93005; 93306; 93880; 93970; 94640; 94760; 95816; 99285